=== PATIENT | female | born 1990 | race Caucasian/White ===

== ENCOUNTER 2025-02-26 01:56 | Emergency (ER) | payer BC, SELFPAY ==
--- OUTSIDE RECORDS SUMMARY | 2025-02-26 01:59 | XMS_ITS | Clinical Summary ---
Author Organization [employer] [facility] Address [address] [place] [id number] Care Team Providers Care Natural Sciences Department Chair Name Role Phone Pcp, No Primary Care Provider Unavailabl e Shruthi José Unavailable [phone] Emperatriz Garcia MD Unavailable Danita Quinones Unavailable [phone] Allergies Active Allergy Reactions Criticality Noted Date Comments Blood-Group Specific Substance Other - Describe In Comment Field 07/25/2024 Patient has anti-Jka (Arias A), anti-Fyb (Lea B), and a Nonspecific (antibodies). Blood products may be delayed. Draw patient 24 hours prior to transfusion. For [place] testing, draw one red top and two purple top tubes for all type and screen orders. Egg Derived Hives 06/04/2015 Childhood reaction in past. Can tolerate eggs but avoids them. Medications Vujtlxtd-Nm-Rio- Fe-FA tab tablet Take 1 tablet by mouth once daily. 0 03/05/20 19 Active Ferrous Sulfate 134 mg (27 mg iron) tablet Take 134 mg by mouth. 12/01/19 25 Active labetaloL 200 mg tabletIndication s: hypertension (HC) Take 2 Tablets (400 mg) by mouth every 8 hours. 180 Tablet 1 5 10:12 AM CDT 02/12/20 25 Active acetaminophen 325 mg tabletIndication s:Vaginal delivery (HC) Take 1-2 Tablets (325-650 mg) by mouth every 4 hours if needed (mild pain). Max acetaminophen dose: 4000mg in 24 hrs. 02/12/20 25 Active ibuprofen (Motrin IB) 200 mg tabletIndication s:Vaginal delivery (HC) Take 1-3 Tablets (200-600 mg) by mouth every 6 hours if needed (for uterine cramping). Take with food. 02/12/20 25 Active docusate 100 mg capsuleIndicatio ns:Vaginal delivery (HC) Take 1 Capsule (100 mg) by mouth once daily. 30 Capsule 1 5 10:12 AM CDT 02/12/20 25 Active Blood Pressure Test KitIndications:P ostpartum hypertension (HC) Regular Cuff (8.5-16.5 inches). Automatic BP monitor device for home use: patient unable to operate manual sphygmomanometer. Take and record blood pressure twice daily. 1 Each 5 10:51 AM CDT 02/12/20 25 Active NIFEdipine 30 mg extended-release tabletIndication s:Pre-eclampsia, (HC) Take 1 Tablet (30 mg) by mouth two times daily. 02/22/20 25 Active NIFEdipine 30 mg extended-release tabletIndication s: hypertension (HC) Take 2 Tablets (60 mg) by mouth once daily before a meal. 60 Tablet 1 5 10:12 AM CDT 02/13/20 25 025 Discontin ued(*IP Discontin ued) furosemide 20 mg tabletIndication s: hypertension (HC),Elevated brain natriuretic peptide (BNP) level Take 1 Tablet (20 mg) by mouth two times daily. 7 Tablet 5 10:12 AM CDT 02/12/20 25 025 Discontin ued(*IP Discontin ued) NIFEdipine 30 mg extended-release tabletIndication s: hypertension (HC) Take 1 Tablet (30 mg) by mouth once daily before a meal. 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 Collier) 09/15/2019 Pap smear for cervical cancer screening 08/06/20 24 Overview (08/06/2024): 07/2024 NIL/HPV negative. Plan: Pap/HPV due 07/2029 [facility] Supervision of high-risk Overview (01/20/2025): Erin Martinez : 1990 MPP ULTRASOUND/TESTING PATIENT MPP CONSULT ON REFERRING PROVIDER/CLINIC LOCATION/FAX #: Natural Sciences Department Chair Role and Specialty Contact Info Address Start End Comments Shruthi José PA (Physician Printing Table Hand) [facility] [address] [facility] [id number] 07/30/2024 - - Primary provider approves scheduling of recommended ultrasounds/testing: Yes Support person name: Filleter: No /ULTRASOUND TYPE: 01/27/25: f/u growth REASON FOR VISIT: What would you like to discuss or review? anti-arias a antibody, 1:2 titer [facility]:(select all that apply) testing/delivery recommendations NEXT VISIT ALERTS: Final [place] by LMP LMP Date: Patient's last menstrual period was 05/10/2024 (exact date). [place]: 02/14/25 Early US: Date: 07/23/24 GA: 11w0d [place]: 02/11/25 PrePregnancy Weight: 130 lb Height: 64.75 BMI: 22.5 PLANS & FUTURE APPOINTMENTS: ULTRASOUND/GROWTH PLAN: follow up growth at 28 and 34 weeks - Growth: Next 11/25/24 TESTING PLAN: - Testing: Through DELIVERY PLAN: - Scheduled delivery: - Preferred delivery location: PRIMARY DIAGNOSIS: 33 y.o. 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 AC 47% 07/23/24 GA: 11w0d [place]: 02/11/25 ECHO: 09/30/24 SPECIALISTS/CONSULTS: Include: Specialty MD Clinic Name Phone# [place] and ADDED TO PATIENT CARE TEAM GENETICS: Declines testing, declines L2 CARE COORDINATION: PERTINENT LABS: Blood type: O Rh Positive Antibody screen: Positive Positive anti-Arias antibodies <1:2 on 07/25/24, same on 08/28/24 Anti-Arias antibody titer: 08/28/24= 1:2, 09/25/24 = 1:2, 10/23/24 1:2 PERTINENT MEDS: PNV, prometrium PROCEDURES: PLAN OF CARE: Per SA on 11/25/24: RECOMMENDATIONS: -Return to primary OB provider for continued care. -Present findings are reassuring. -A follow up ultrasound for growth is planned in 8 weeks. -Continue monthly antibody titers as planned. 09/30/24 per [facility] RECOMMENDATIONS: -Return to primary provider for continued care. -No medication changes are indicated. -Continue with monthly antibody titers (see consult/EPIC) -The option of amniocentesis was presented. -A follow up ultrasound for growth is recommended at 28 and 34 weeks scheduled with MPP today Supervision of other normal , antepartu 07/08/2024 Overview (07/25/2024): 33 yo History of vaginal del x 5 Grand mutip Advanced maternal age : declines testing. Wants routine ultrasound History of anti-Arias antibody: will do monthly titers and then refer to mpp only if needed as has been stable in all prior other pregnancies. BMI: 21.98 18.5-24.9 recommended weight gain 25-35# Ultrasound: Scheduled 07/23/2024 COVID-19 vaccine: Declined Peds: Dr. Hallman - [facility] Partners name: Marcel OB History Para Term AB Living 7 5 5 0 1 5 SAB IAB Ectopic Multiple Live Births 1 0 0 5 # Outcome Date GA Lbr Rodrigo/2nd Weight Sex Type Anes PTL Lv 7 Current 6 Term 01/29/22 39w3d 09:03 / 00:07 3.9 kg (8 lb 9.6 oz) F VAGINAL MACI EPIDURAL MEAGAN 5 Term 03/09/20 38w2d 3.12 kg (6 lb 14.1 oz) M VAGINAL MACI NONE N MEAGAN Comments: increased antibody titer 4 Term 06/08/17 41w1d 3.7 kg (8 lb 2.5 oz) M Vag-Spont None N MEAGAN 3 Term 06/29/15 41w0d 3.48 kg (7 lb 10.8 oz) M Vag-Spont NONE, Local N MEAGAN Comments: 50 min labor with PPH (delivered in ED) Complications: Other Excessive Bleeding, Precipitous labor (< 3 hours) 2 Term 12/23/13 40w5d 3.74 kg (8 lb 4 oz) M VAGINAL MACI NONE N MEAGAN Comments: HTN in labor; oligohydramnios 40w5d week induction 1 SAB 07/2013 7w0d SPONTANEOUS Family history of breast cancer 06/19/2019 Overview (06/19/2019): Start screening mammo and breast MRI age 35; candidate for genetic testing Resolved Problems Problem Noted Date Diagnosed Date Resolved Date Jka antibody positive 09/30/20242023 Vaginal delivery 01/29/2022 09/29/2024 Supervision of other normal 06/23/2021 09/29/2024 Overview (06/23/2021): Gestational age at time of intake: 8.0 weeks Patient preferred name: [employer] Hx: Hx Anti-Arias a antibody, Hx PCOS Concerns this : OB Hx: OB History Para Term AB Living 6 4 4 0 1 4 SAB TAB Ectopic Multiple Live Births 1 0 0 0 4 # Outcome Date GA Lbr Rodrigo/2nd Weight Sex Delivery Anes PTL Lv 6 Current 5 Term 03/09/20 38w2d 3.12 kg (6 lb 14.1 oz) M VAGINAL MACI NONE N MEAGAN 4 Term 06/08/17 41w1d 3.71 kg (8 lb 3 oz) M Vag-Spont NONE N MEAGAN 3 Term 06/29/15 41w0d 3.49 kg (7 lb 11 oz) M Vag-Spont NONE N MEAGAN Comments: 50 min labor with PPH (delivered in ED) Complications: Other Excessive Bleeding, Precipitous labor (< 3 hours) 2 Term 12/23/13 40w5d 3.74 kg (8 lb 4 oz) M VAGINAL MACI NONE N MEAGAN Comments: HTN in labor; oligohydramnios 40w5d week induction 1 SAB 08/13/12 7w0d SPONTANEOUS Early GTT indicated: Denies Hx of thyroid disorder: Denies ASA indicated-High Risk for preeclampsia: No Level 2 FAS indicated (pre-preg BMI>30): No Genetic screening: Information reviewed with patient BMI:20.47 Recommended wt gain: 25 to 35 lbs Smoker: N/A HSV: Denies Ultrasound: 06/24/2021 Flu vaccine: 12/03/2019 COVID-19 vaccine: No Pertussis Vaccine: 12/29/2019 Peds: Dr. Hallman at [facility] Domestic violence screen: Denies Partners name (if applicable): Marcel Iban [facility] Consult 09/10/2019 07/30/2024 Overview (09/10/2019): [facility] CONSULTATION ON 09/15/2019 REASON FOR CONSULT: Anti-Arias antibody titer<1:1, risks/management TODAY'S APPOINTMENT: MD Consultation PRIMARY DIAGNOSIS: 29 y.o. Estimated Date of Delivery: 03/21/20 Positive anti-Arias antibodies <1:1 Anti-Arias antibodies noted in last also - 2016 Hx PPH after precipitous delivery in ED - 2014 (no mention of transfusion in notes) Hx HTN in labor - 2013 LAST GROWTH: 08/13/19 Dating 9w0d C/W LMP 06/15/19 8w3d REFERRING PHYSICIAN/PHONE/LAST UPDATE: Blanche Brown MD, [facility], Primary MD approves scheduling of recommended ultrasounds/testing: No SPECIALISTS/CONSULTS: Include: Specialty MD Clinic Name Phone# [place] and ADD TO CARE TEAM CARE COORDINATION: GENETICS: PROCEDURES: PERTINENT LABS: Labs reviewed? Yes Normal? Yes, except antibody titer O Positive, antibody Positive - anti-Arias <1:1 PERTINENT MEDS: Preferred delivery location: [facility] [place] PLAN OF CARE: Encounter for supervision of other normal , unspecified trimester 08/13/2019 024 Overview (09/05/2019): 29 y.o. H/O vag delivery X 3 Anti-arias antibody. Genetic testing: declines History PPH with second baby (after a rapid delivery in the ED) BMI:20.22 25-35# Recommended wt gain Peds: Dr Hallman at [facility] FOB: involved, Marcel OB History Para Term AB Living 5 3 3 0 1 3 SAB TAB Ectopic Multiple Live Births 1 0 0 0 3 # Outcome Date GA Lbr Rodrigo/2nd Weight Sex Delivery Anes PTL Lv 5 Current 4 Term 06/08/17 41w1d 3.71 kg (8 lb 3 oz) M Vag NONE N MEAGAN 3 Term 06/29/15 41w0d 3.49 kg (7 lb 11 oz) M Vag NONE N MEAGAN Comments: 50 min labor with PPH (delivered in ED) Complications: Other Excessive Bleeding 2 Term 12/23/13 40w5d 3.74 kg (8 lb 4 oz) M Vag NONE N MEAGAN Comments: HTN in labor; oligohydramnios 38 week induction 1 SAB 08/13/12 7w0d SPONTANEOUS Encounters Date Type Department Care Team Description 02/26/[address] [address] Patsy Granados DO 02/26/2025 Nurse Triage [facility] [address] [place] [address] Carolina Marsh NP High Blood Pressure (Post- ) 02/22/2025 Telephone [facility] [address] [place] [phone] [facility] 02/19/2025 Travel 02/18/2025 10:25 PM CDT - 02/21/2025 9:15 AM CDT Hospital Encounter [address] [address] Emperatriz Garcia MD Pre-eclampsia, (HC) (Primary Dx); Vaginal delivery (HC) Discharge Disposition: Home Self Care 02/16/2025 Travel 02/13/2025 10:00 AM CDT Office [facility] [address] [place] [address] [place] [address] Danita Quinones PA 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 (still feels uncontrolled/talk about trajectory) 02/12/2025 Travel 02/11/2025 11:59 PM CDT - 02/12/2025 2:31 AM CDT Hospital Encounter [address] [address] Yoana Bliss MD Discharge Disposition: Home Self Care 02/11/[address] [address] Patsy Granados DO Hypertension 02/11/2025 Travel 02/11/2025 Telephone [facility] [place] [address] [facility] [address] [place] [address] [facility] ([facility] CALL) 02/08/2025 10:47 AM CDT Anesthesia Event [address] [address] Brian Day MD 02/07/2025 7:21 PM CDT - 02/11/2025 1:50 PM CDT Hospital Encounter [address] [address] Emperatriz Garcia MD [employer], Kaitlynn Rose, DO Vaginal delivery (HC) (Primary Dx); AMA (advanced maternal age) multigravida 35+, third trimester (HC); Hypertension affecting in third trimester (HC); hypertension (HC); Elevated brain natriuretic peptide (BNP) level; Disorder of (HC) Discharge Disposition: Home Self Care 02/07/2025 Travel 02/05/2025 Telephone [facility] [address] [facility] [address] [place] [phone] Patsy Granados DO 02/04/2025 Telephone [facility] [address] [place] [phone] Patys Granados DO 02/03/2025 8:20 AM CDT OB Encounter [facility] [address] [place] [address] Patsy Granados DO Care (38w3d [place] 02/14/2025) 02/02/2025 Travel 01/27/2025 12:40 PM CDT - 01/27/2025 11:59 PM CDT Hospital Encounter [facility] [address] [place], [place] [phone] Danita Quinones PA Supervision of high risk in third trimester (HC) (Primary Dx); Abnormal antibody titer; AMA (advanced maternal age) multigravida 35+, second trimester (HC); High-risk in third trimester (HC) 01/26/2025 2:45 PM CDT Orders Only [facility] [address] [address] [address] Lab, [facility] 01/26/2025 8:00 AM CDT OB Encounter [facility] [address] [facility] [address] [place] [phone] Carolina Marsh NP Care (37 weeks 2 days [place] 02-14-25 ) 01/26/2025 Travel 01/22/2025 Travel 01/20/2025 8:00 AM SHIFT STACKER OB Encounter [facility] [address] [facility] [address] [place] [phone] Danita Quinones PA Care (36+3 [place] 02/14/25) 01/20/2025 Transcribe Orders [facility] [address] [facility] [address] [place] [address] Danita Quinones PA 01/20/2025 Travel 01/19/2025 3:00 PM SHIFT STACKER Office Visit [address] [place] [address] Julio C Enrique MD Consult (New patient consult, , ZIO PATCH DONE 01/13/25, DX: Palpitations, Paroxysmal SVT (supraventricular tachycardia) (HC) / Referred by Daniella Barrera//pt states she feels good. No current cardiac sx. Had some PVCs earlier. Knows they are pvcs and feels them.) 01/18/2025 Travel 01/16/2025 Telephone [facility] [address] [place] [phone] Blanche Brown MD 01/14/2025 Travel 01/12/2025 Orders Only [facility] [address] [place] [address] Ana Pace 2 scans: (2-Ord) FINAL REPORT DOS 12/22/24 01/08/2025 Telephone [facility] [address] [facility] [address] [place] [phone] Patsy Granados DO Reschedule 01/05/2025 8:00 AM SHIFT STACKER OB Encounter [facility] [address] [facility] [address] [place] [address] Carolina Marsh NP Care (34 weeks 2 days [place] 02-14-25 ) 01/05/2025 Travel 12/22/2024 10:20 AM SHIFT STACKER Office [facility] [address] [place] [address] Daniella Barrera MD Palpitations (Irregular heart beat, feels like a jolt x 2 months ) 12/22/2024 8:00 AM SHIFT STACKER OB Encounter [facility] [address] [place] [phone] Blanche Brown MD Care ([place] 02/14/25 [place] 32w2d) 12/22/2024 Orders Only [facility] [address] [place] [address] Daniella Barrera MD 1 scan: (1-Ord) 12/22/2024 12/22/2024 Travel 12/17/2024 Travel 12/08/2024 1:30 PM SHIFT STACKER OB Encounter [facility] [address] [place] [phone] Carolina Marsh NP Care (30 weeks 2 days [place] 02-14-25) 12/08/2024 Travel from Last 3 Months Immunizations Immunization Administration Dates Next Due INFLUENZA, IIV3 PF (AGE >= 6 MO) 11/07/2024 Influenza, IIV4 12/03/2019 MMR 02/09/2025() MMR, Unspecified 06/09/2017,06/30/2015 Tdap 11/26/2024,,12/29/2019,03/22/2017 ,05/28/2015,04/05/2012 Family History Medical History Relation Name Comments Good Health Brother Hyperlipidemia Brother Good Health Daughter Diabetes Father Heart Disease Father Hyperlipidemia Father Hypertension Father Cancer-breast Maternal Aunt diagnosed in her 40s Cancer-pancreatic Maternal Aunt Diabetes Maternal Aunt Good Health Maternal Aunt Stroke Maternal Grandfather Alzheimer's disease Maternal Grandmother Anxiety disorder Mother Cancer-breast Mother Cancer-breast Other maternal cousi ns Cancer-pancreatic Paternal Aunt Lymphoma Paternal Grandfather Arthritis Paternal Grandmother Heart Disease Paternal Grandmother Lymphoma Paternal Grandmother Good Health Son 1 Good Health Son 2 Good Health Son 3 Good Health Son 4 Cancer-ovarian No Family History Relation Name Status Comments Brother Alive Daughter Alive Father Alive Maternal Aunt Maternal Grandfather Maternal Grandmother Mother Other Paternal Aunt Paternal Grandfather Paternal Grandmother Son 1 Alive Son 2 Alive Son 3 Alive Son 4 Alive Social History Tobacco Use Types Packs/Day Years Used Date Smoking Tobacco: Never Passive Smoke Exposure: Never Smokeless Tobacco: Never Tobacco Cessation:Counseling Given: Not Answered Alcohol Use Standard Drinks/Week Comments Never 0 (1 standard drink = 0.6 oz pur e alcohol) PHQ-2 Answer Date Recorded PHQ-2 TOTAL SCORE 0 11/26/2024 Social Connections Answer Date Recorded Do you often feel lonely or isolated from those around you? 0 02/19/2025 Financial Resource Strain Answer Date R ecorded Difficulty of Paying Living Expenses 3 09/29/2024 Difficulty of Paying Living Expenses Not on file 09/29/2024 Food Insecurity Answer Date Recorded Do you worry your food will run out before you are able to buy more? 1 02/19/2025 Transportation Needs Answer Date Record ed Does lack of transportation keep you from medica l appointments? 1 02/19/2025 Does lack of transportation keep you from work, meetings or getting things that you need? 1 02/19/2025 Housing Stability Answer Date Recorded What is your housing situation today? 1 02/19/2025 Interpersonal Safety Answer Date Record ed Are you being hit, kicked, p ushed or yelled at (see row info)? Unable to assess, family/SO in room. 02/19/2025 Interpersonal Safety Abuse 12 - 18 Not on file 02/19/2025 Interpersonal Safety Ambulat ory Vulnerability Not on file 02/19/2025 Utilities Answer Date Recorded Do you have trouble paying f or utilities (for example, heat, electricity, water, phone)? 1 02/19/2025 Comments No Sex and Gender Information Value Date Recorded Sex Assigned at Not on file Legal Sex Female 1:03 PM SHIFT STACKER Gender Identity Not on file Sexual Orientation Not on file Obstetrics History Para Term AB IAB SAB Ectopic Multiple Livin g Live Births 7 6 6 0 1 0 1 0 0 6 6 Date Outcome GA Total Labor Labor/2nd/3rd Weight Sex Type Anes PTL Meagan A1 A5 Name Clin 3 SAB 7w0 d SPONTA NEOUS 2013 Term 40w 5d 3h 00m 3.74 kg (8 lb 4 oz) M VAGINA L MACI None N Livin g Timot hy Complications:None Delivery Location:[facility] Comments:HTN in labor; oligohydramnios 40w5d week induction 2014 Term 41w 0d 0h 23m 0h 23m 3.48 kg (7 lb 10.8 oz) M Vag-Sp ont None,L ocal N Livin g 8 9 Lucian Dubose Complications:Other Excessiv e Bleeding,Precipitous labor (< 3 hours) Delivery Location:[facility] Comments:50 min labor with PPH (delivered in ED) 2016 Term 41w 1d 0h 02m 0h 02m 3.7 kg (8 lb 2.5 oz) M Vag-Sp ont None N Livin g 8 9 Carlo Chacon ield Dalto n DO Complications:None Delivery Location:[facility] 2019 Term 38w 2d 0h 09m 3.12 kg (6 lb 14.1 oz) M VAGINA L MACI None N Livin g [address] Kisha cannon and Pe[place] es Complications:None Delivery Location:[facility] (UTD 2000 MB L&D TRIAGE) Comments:increased ant ibody titer 2021 Term 39w 3d 9h 16m 9h 03m/0h 07m/0h 06m 3.9 kg (8 lb 9.6 oz) F VAGINA L MACI Epidur al Livin g 8 9 Beatris mac, Qian yanez MD Complications:None Delivery Location:[facility] ( [email or web address] 1999 MB L&D TRIAGE) 2024 Term 39w 1d 0h 07m 0h 07m 3.51 kg (7 lb 11.8 oz) F VAGINA L MACI Epidur al Livin g 8 8 Isabel Reyes [facility] Yoana Galvez MD Complications:None Delivery Location:Hospital ( [facility] [[email or web address] 1999 MB L&D TRIAGE) Summary Episode Dates Number of Fetuses Estimated Date of Delivery 07/08/2024 - Present (02/26/2025) 1 02/14/2025 (set by Jenifer Oden, RN on 07/08/2024 based on Last Menstrual Period on 05/10/2024 (Exact Date)) Dating Summary Based On [place] Diff Last Menstrual Period on 05/10/2024 (Exact Date) 02/14/2025 Working Alternate [place] Entry 02/14/2025 Same Vitals Pregravid Weight Height TWG (As of 02/26/2025) Pregrav id BMI 59 kg (130 lb) 1.626 m (5' 4) 16.9 kg (37 lb 4.8 oz) 22.30 Date GA Fund Present FHR Mvmt BP Weight Edema Alb Glu Ket Dil/ Eff/Sta 4 20w3d Inpatient data not displayed here. See encounter summary. 5 28w3d Inpatient data not displayed here. See encounter summary. 5 37w3d Inpatient data not displayed here. See encounter summary. 5 39w1d Inpatient data not displayed here. See encounter summary. 5 39w1d Inpatient data not displayed here. See encounter summary. 5 39w1d Inpatient data not displayed here. See encounter summary. 5 39w1d Inpatient data not displayed here. See encounter summary. 5 39w1d Inpatient data not displayed here. See encounter summary. Notes Progress Notes - Hospital En counter - 02/21/2025 - GA:39w1d 02/21/2025 - 39w1d - Lucy Klein RN Problem: HEMODYNAMIC STABILITY Goal: PATIENT MAINTAINS STABLE VS WITH NO S/S VOLUME DEPLETION THROUGHOUT HOSPITALIZATION Outcome: Met Goal Goal: BLOOD PRESSURE WILL BE MAINTAINED BETWEEN DEFINED PARAMETERS THROUGHOUT HOSPITAL STAY. Outcome: Met Goal Problem: SAFETY Goal: PATIENT WILL BE KNOWLEDGEABLE REGARDING NEWLY ORDERED MEDS, INTENDED AND SIDE EFFECTS OF EACH Outcome: Met Goal Note: Vaginal Discharge Data: Vital signs stable, afebrile and assessments within normal limits. Tolerating activity and diet. Voiding without difficulty. Pain within patient determined acceptable limits. Perineum appears to be healing well. Positive attachment behaviors observed. Discharge outcomes on the care plan met. Action: Review of care plan, teaching sheet and discharge instructions done with patient. Response: Discharged at 0915 via Wheelchair 02/21/2025 - w1d - Sofía Gutierrez NP SUBJECTIVE Erin Martinez is a 34 y.o. female s/p vaginal delivery on 02/08. Initial hospitalization complicated by ppHTN and was ultimately discharge on PPD 3 taking Labetalol 400mg q8h and Nifedipine 60mg daily. Pt was seen in triage 02/11 with increase of Labetalol to 600mg q8h. Then, followed up in clinic 02/13 and Nifedipine adjusted to 60mg AM and 30mg PM. Pt ultimately presented to Triage again 02/19 with severe range BP and headache. Started on magnesium sulfate with scheduled end time 02/19 at 2350. She is feeling significantly improved this morning, headache resolved, denies any other symptoms. Blood pressures well controlled. She has no emotional concerns at this time. She is tolerating diet, ambulating without difficulty, and has no issues with urination. Her blood pressures have been well controlled. She denies [place], visual disturbances, epigastric pain, dizziness, dyspnea, or chest palpitations. OBJECTIVE BP 115/73 (Cuff Size: Adult Regular) Pulse 64 Temp 98 F (36.7 C) Resp 16 Ht 1.626 m (5' 4) Wt 64.6 kg (142 lb 8 oz) LMP 05/10/2024 (Exact Date) SpO2 97% Yes BMI 24.46 kg/m Temp (24hrs), Av.2 F (36.8 C), Min:97.9 F (36.6 C), Max:98.6 F (37 C) Patient Vitals for the past 72 hrs: Weight 02/21/25 0033 64.6 kg (142 lb 8 oz) 02/20/25 0200 65 kg (143 lb 3.2 oz) 02/19/25 0859 64.8 kg (142 lb 14.4 oz) 02/19/25 0003 66.7 kg (147 lb) Intake/Output Summary (Last 24 hours) at 02/21/2025 0752 Last data filed at 02/21/2025 0500 Gross per 24 hour Intake 2000 ml Output 400 ml Net 1600 ml Gen: alert, oriented, no apparent distress Recent Labs 02/19/25 0745 02/18/25229902/13/25 1038 BUN 13 18 16 AST 20 18 27 ALT 17 19 31 H HGB 13.9 13.1 12.5 HCT 42.0 39.4 38.3 MCV 83 84 83.4 WBC 5.1 6.0 5.7 PLT 263 262 267 Recent Labs 02/19/25 0745 02/18/25229902/13/25 1038 02/12/25 0039 WBC 5.1 6.0 5.7 6.9 HGB 13.9 13.1 12.5 11.8 L PLT 263 262 267 258 HCT 42.0 39.4 38.3 34.8 MCV 83 84 83.4 83 ASSESSMENT - pre-eclampsia with severe features - S/P vaginal delivery 02/08 PLAN: - S/p magnesium sulfate, decreased to 1g/hr 02/19am, discontinued 02/19. Continue on Labetalol 400mg q8hrs and Nifedipine 30mg XR BID. - Reviewed blood pressure parameters - Follow up in clinic for blood pressure check by end of next week - Routine postoperative cares - Encourage ambulation - Advance diet - Anticipate discharge today Time spent with patient was 30 minutes with > 50 % of time spent face to face counseling as indicated above and coordination of care. Brenda Renuka Brenda, MANAGER PLACEMENT .................... 02/21/2025 7:52 AM 02/21/2025 - 39w1d - Katelynn Vincent ra, RN Problem: HEMODYNAMIC STABILITY Goal: BLOOD PRESSURE WILL BE MAINTAINED BETWEEN DEFINED PARAMETERS THROUGHOUT HOSPITAL STAY. Note: Patients bp's were 129/78 & 115/73, no complaints of headache, blurry vision with strong hand grasp will continue with plan of cares. 02/21/2025 - 39w1d - Jenifer Kumari RN Problem: HEMODYNAMIC STABILITY Goal: BLOOD PRESSURE WILL BE MAINTAINED BETWEEN DEFINED PARAMETERS THROUGHOUT HOSPITAL STAY. Description: - Monitor vital signs per orders and acuity- Intake and output and daily weights- Note edema, location and degree of edema- Monitor lung sounds and observe for symptoms of pulmonary edema - Observe for elevated liver function labs and decreasing platelets- Observe for worsening signs of preeclampsia i.e. labs, headache, epigastric pain or visual disturbances; edema and weight gain - Administer IV and /or oral antihypertensive medications using the appropriate order set.- Administer magnesium sulfate per orders and observe for signs and symptoms of complications from magnesium use ie check hand grasps, reflexes , lung sounds, daily weight s, intake and out put Outcome: Progressing Note: Patient blood pressures have been below 140s/90s this shift, reflexes WNL, and patient denies headache or other s/sx of pre-eclampsia. Plan is to continue monitoring blood pressures overnight, and if they remain WNL patient will likely DC home tomorrow. 02/20/2025 - 39w1d - Sofía Cannon RN Problem: HEMODYNAMIC STABILITY Goal: BLOOD PRESSURE WILL BE MAINTAINED BETWEEN DEFINED PARAMETERS THROUGHOUT HOSPITAL STAY. Note: BP remains WNL this shift. 136/91 at AM assessment. Scheduled labetalol and nifedipine given at this time. Patient showered and called out to RN reporting brief episode of lightheaded/dizziness while in shower. Patient had personal BP cuff in room and self checked at this time, reported BP of 104/68. RN rechecked BP: 116/74. Educated patient on waiting to shower versus taking shower right after BP medications. Patient DTR WNL AND VSS. 1400 BP check 120/74. Patient denies headache and will let RN know if wanting any medications for this. Pumping milk and infant, ambulating independently and voiding well. Patient states her needs are met at this time and will call with any needs. 02/20/2025 - 39wSofía Machado RN Problem: SAFETY Goal: PATIENT WILL BE KNOWLEDGEABLE REGARDING NEWLY ORDERED MEDS, INTENDED AND SIDE EFFECTS OF EACH Note: Student charting has been reviewed and approved for this patient s record. Jody Cannon RN .................... 02/20/2025 12:18 PM 02/20/2025 - 39w1d Iris Esquivel PA SUBJECTIVE Erin Martinez is a 34 y.o. female s/p vaginal delivery on 02/08. Initial hospitalization complicated by ppHTN and was ultimately discharge on PPD 3 taking Labetalol 400mg q8h and Nifedipine 60mg daily. Pt was seen in triage 02/11 with increase of Labetalol to 600mg q8h. Then, followed up in clinic 02/13 and Nifedipine adjusted to 60mg AM and 30mg PM. Pt ultimately presented to Triage again 02/19 with severe range BP and headache. Started on magnesium sulfate with scheduled end time 02/19 at 2350. The patient is Breast feeding baby. She is feeling significantly improved this morning, headache resolved, denies any other symptoms. Blood pressures well controlled. She has no emotional concerns at this time. She is tolerating diet, ambulating without difficulty, and has no issues with urination. OBJECTIVE BP 116/67 Pulse 70 Temp 97.8 F (36.6 C) Resp 16 Ht 1.626 m (5' 4) Wt 65 kg (143 lb 3.2 oz) LMP 05/10/2024 (Exact Date) SpO2 96% Yes BMI 24.58 kg/m Temp (24hrs), Av.8 F (36.6 C), Min:97.7 F (36.5 C), Max:97.8 F (36.6 C) Patient Vitals for the past 72 hrs: Weight 02/20/25 0200 65 kg (143 lb 3.2 oz) 02/19/25 0859 64.8 kg (142 lb 14.4 oz) 02/19/25 0003 66.7 kg (147 lb) Intake/Output Summary (Last 24 hours) at 02/20/2025 0847 Last data filed at 02/20/2025 0700 Gross per 24 hour Intake 1695 ml Output 3300 ml Net -1605 ml Gen: alert, oriented, no apparent distress, sitting up in bed pumping Recent Labs 02/19/25 0745 02/18/25 2300 02/13/25 1038 BUN 13 18 16 AST 20 18 27 ALT 17 19 31 H HGB 13.9 13.1 12.5 HCT 42.0 39.4 38.3 MCV 83 84 83.4 WBC 5.1 6.0 5.7 PLT 263 262 267 Recent Labs 02/19/25 0745 02/18/25 2300 02/13/25 1038 02/12/25 0039 WBC 5.1 6.0 5.7 6.9 HGB 13.9 13.1 12.5 11.8 L PLT 263 262 267 258 HCT 42.0 39.4 38.3 34.8 MCV 83 84 83.4 83 ASSESSMENT - pre-eclampsia with severe features - S/P vaginal delivery 02/08 PLAN: - S/p magnesium sulfate, decreased to 1g/hr 04am, discontinued 02/19. Continue on Labetalol 400mg q8hrs and Nifedipine 30mg XR BID. - Routine cares - Encourage ambulation - Regular diet - Anticipate discharge tomorrow pending blood pressure control. Time spent with patient of which >50% of time was spent counseling or coordinating care: 15 minutes DONNIE Velasco .................... 02/20/2025 8:47 AM 02/20/2025 - 39w1d - Nalini Dang RN Problem: HEMODYNAMIC STABILITY Goal: BLOOD PRESSURE WILL BE MAINTAINED BETWEEN DEFINED PARAMETERS THROUGHOUT HOSPITAL STAY. Outcome: Progressing VSS, BPs on this shift: 119/75 and 116/67. Patient continues to have a mild headache 2/10 and some relief with scheduled pain medications. PIV taken out due to pain on upper part of arm. Pain resolved. Mag completed at 2359. Patient denies blurred vision, epigastric pain, nausea and vomiting. 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 Patient will call with concerns. 02/20/2025 - 39w1d - Patricia Cotton RN Problem: HEMODYNAMIC STABILITY Goal: BLOOD PRESSURE WILL BE MAINTAINED BETWEEN DEFINED PARAMETERS THROUGHOUT HOSPITAL STAY. Description: - Monitor vital signs per orders and acuity- Intake and output and daily weights- Note edema, location and degree of edema- Monitor lung sounds and observe for symptoms of pulmonary edema - Observe for elevated liver function labs and decreasing platelets- Observe for worsening signs of preeclampsia i.e. labs, headache, epigastric pain or visual disturbances; edema and weight gain - Administer IV and /or oral antihypertensive medications using the appropriate order set.- Administer magnesium sulfate per orders and observe for signs and symptoms of complications from magnesium use ie check hand grasps, reflexes , lung sounds, daily weight s, intake and out put Note: Care Plan Progress Note Data: Pt continues on magnesium sulfate per orders, vital signs have been stable and BP within normal limits. Pt denies any visual changes, epigastric pain or RUQ pain. Pt continues to have an ongoing headache on and off throughout the day. Action: Pt medicated with ibuprofen and Tylenol as needed. Will reassess pain/comfort and offer alternate intervention as appropriate. Continue to observe for signs and symptoms of complications from magnesium. 02/19/2025 - 39femi - Sofía Cannon RN Student charting has been reviewed and approved for this patient s record. Jody Cannon RN .................... 02/19/2025 11:28 AM 02/19/2025 - 39femi - Sofía Cannon RN Problem: HEMODYNAMIC STABILITY Goal: BLOOD PRESSURE WILL BE MAINTAINED BETWEEN DEFINED PARAMETERS THROUGHOUT HOSPITAL STAY. Note: Provider Notification Note DATA Reason for Notification: Patient magnesium level resulted at 5.5. BP this AM 111/66. Clarification of orders for Magnesium infusion and scheduled BP meds. ACTION Provider Notified: DONNIE Valentino at 0900 via Face to face RESPONSE Will hold BP medications labetalol and nifedipine for now, recheck BP with ordered rechecks. VORB to restart magnesium at 1g/hr. Will continue until 24 hours after loading dose. Pt aware to report any changes to PP RN. DONNIE updated orders with end time for magnesium and adjusted dosage. 1322: DONNIE Hawkins called for BP 130/82. Ordered to give previously held AM dose of 30mg nifedipine now. Plan to recheck BP in 2 hours (1530) and reassess from there. Per DONNIE - if still above 110/60 - give scheduled 1600 dose of labetalol at this time. also received VORB for standard BP med parameters for holding (BP equal to or less than 110/60). Nursing communication order placed. 02/19/2025 - 39w1d - Shruthi Hill PA SUBJECTIVE Erin Martinez is a 34 y.o. female s/p vaginal delivery on 02/08. Initial hospitalization complicated by ppHTN and was ultimately discharge on PPD 3 taking Labetalol 400mg q8h and Nifedipine 60mg daily. Pt was seen in triage 02/11 with increase of Labetalol to 600mg q8h. Then, followed up in clinic 02/13 and Nifedipine adjusted to 60mg AM and 30mg PM. Pt ultimately presented to Triage again 02/19 with severe range BP and headache. Started on magnesium sulfate with scheduled end time 02/19 at 2350. The patient is Breast feeding baby. Her blood pressures have been within normal limits on magnesium, meeting hold parameters for Labetalol and Nifedipine this AM. Denies JOHNSTON, visual disturbances, epigastric pain, dizziness, dyspnea, chest pain or palpitations. PCR 0.1, liver enzymes nl, Cr nl, hgb/plt nl. Other vitals have remained WNL. Doing well today. No new complaints. Pain is well controlled with current medications. She has no emotional concerns at this time. She denies any nausea, and emesis. She is tolerating diet, ambulating without difficulty, and has no issues with urination. Amount of lochia is appropriate. OBJECTIVE BP 111/66 (Cuff Size: Adult Regular) Pulse 75 Temp 97.7 F (36.5 C) Resp 16 Ht 1.626 m (5' 4) Wt 64.8 kg (142 lb 14.4 oz) LMP 05/10/2024 (Exact Date) SpO2 98% Yes BMI 24.53 kg/m Temp (24hrs), Av.7 F (36.5 C), Min:97.5 F (36.4 C), Max:98 F (36.7 C) Patient Vitals for the past 72 hrs: Weight 02/19/25 0859 64.8 kg (142 lb 14.4 oz) 02/19/25 0003 66.7 kg (147 lb) Intake/Output Summary (Last 24 hours) at 02/19/2025 0985 Last data filed at 02/19/2025 0848 Gross per 24 hour Intake 1000 ml Output 2000 ml Net -1000 ml Gen: alert, oriented, no apparent distress Extremities: no lower extremity edema, no unilateral swelling or erythema ASSESSMENT - pre-eclampsia with severe features - S/P vaginal delivery 02/08 - Normal course PLAN: - On magnesium, 4g load >2g/hr. Was paused this AM due to pt feeling lightheaded/drunk and mag level checked, 5.5. Symptoms resolved and resumed at 1g/hr and tolerating well. - Continue Nifedipine 30mg BID and Labetalol 400mg q8h. Would wean off Labetalol first. - Routine cares - Encourage ambulation - Advance diet - Discharge likely Sunday pending BP control DONNIE Barber .................... 02/19/2025 9:37 AM 02/19/2025 - 39w1d - Paola Franks RN DISPOSITION: Orders received from Dr. Lyle to admit patient for blood pressure management. Will start pts Magnesium infusion and transfer after 1 hour if she remains stable. Magnesium load initiated at 2352. Bedside report given to JOSH Alvarado at 0100. Patient transferred to room 2324 via wheelchair. Magnesium currently infusing at 2g/hr per MAR, pt continues to report a 5/10 headache but declines medications at this time. Care relinquished. Susan Franks RN .................... 02/19/2025 1:06 AM 02/19/2025 - 39w1d - Paola Franks RN D: At 2227 patient presents ambulatory from home to [facility] for evaluation of headache and elevated blood pressures at home (165/101, 161/103). Accompanied by and . Patient reports Headache with onset this AM. Rates pain 5/10 after taking 650mg of tylenol at 2000. Patient denies visual changes, epigastric pain, and unusual edema. Patient is a and delivered vaginally on 02/08. Patient's OB/PMH significant for the following: She is currently taking 400mg of Labetolol Q8H at home and recently decreased her XR Nifedipine from 60mg to 30mg due to BP's in the 110's systolic and feeling lightheaded. A: Vital signs BP (!) 174/98 (Cuff Size: Adult Regular Long) Pulse 62 Temp 98 F (36.7 C) Resp 16 LMP 05/10/2024 (Exact Date) SpO2 95% . R: Dr. Lyle phoned at 2245 and notified of above data, nursing assessment and FHR tracing. Orders received. Plan of Care discussed with patient, patient verbalizes understanding and agreement. LABS COLLECTED: PCR, CBC & CMP, sent to lab. INTERVENTIONS: IV and Medications Progress Notes - Hospital En counter - 02/12/2025 - GA:39w1d 02/12/2025 - 39w1d - Raul Lloyd RN 0115- Report taken from Prisca Ribera RN. Safety checks completed. 224- Called Dr. Granados to notify her about lab results. New orders received to discharge to home and increased labetolol to 600mg TID with follow up on Sunday, if possible. 229- Discharge DISPOSITION: Orders received from Dr. Granados to discharge patient to home. AVS and instructions of when to return to hospital reviewed with patient. Patient verbalizes understanding and is in agreement with plan of care. Next patient appointment with OB Provider is scheduled on 02/[address] Granados would like pt to try to be seen on Sunday if possible. Pt also instructed to take Labetolol 600mg TID and she verbalized understanding. At 0230 patient discharged ambulatory, undelivered. Raul Lloyd RN .................... 02/12/2025 7:19 AM 02/12/2025 - 39w1d - Prisca De La Cruz RN 0115: Report given to Raul MORENO. Care relinquished. Prisca De La Cruz RN .................... 02/12/2025 1:18 AM 02/12/2025 - 39w1d - Prisca De La Cruz RN D: At 2359 patient presents ambulatory from home to [facility] for evaluation of elevated BP at home. Accompanied by partner and child. Patient reports checking BP prior to 2200 scheduled labetalol 400 mg dose and BP's were 142/87 and 144/96. Pt called insurance verification clerk and was instructed to increase labetalol to 600 mg. Pt took it at 2200. Next BP 163/98. Pt reports feeling generally well. Rates pain 0/10. Patient denies headache, visual changes, epigastric pain, and unusual edema. Patient is a at 39w1d gestation. Patient's OB/PMH significant for the following: A: Vital signs BP 134/86 Pulse 74 Temp 98.2 F (36.8 C) Resp 16 Wt 68.1 kg (150 lb 1.6 oz) LMP 05/10/2024 (Exact Date) SpO2 98% Yes BMI 25.17 kg/m . R: 0023: Dr. Granados called and informed of pt's arrival for BP check, increased dose of home medication labetalol at 2200 was 600 mg, and verbal order to repeat labs, CBC, CMP, and Pro-BNP. No Urine PCR at this time. LABS COLLECTED: all collected, sent to lab. INTERVENTIONS: serial BP's Prisca De La Cruz RN .................... 02/12/2025 1:16 AM Progress Notes - Hospital En counter - 02/11/2025 - GA:39w1d 02/11/2025 - 39wjameel - Екатерина Ovalle RN Problem: DISCHARGE PLANNING Goal: PATIENT MEETS CLINICAL DISCHARGE CRITERIA / CHRONIC CONDITIONS AT BASELINE PRIOR TO DISCHARGE Note: Vaginal Discharge Data: Assessments within normal limits. Tolerating activity and diet. Voiding without difficulty. Pain within patient determined acceptable limits. Perineum appears to be healing well. Positive attachment behaviors observed. Discharge outcomes on the care plan met. Action: Review of care plan, teaching sheet and discharge instructions done with patient. Response: Discharged at 1345 via Wheelchair accompanied by RN and nursing staffing coordinator. 02/11/2025 - 39w1d - Екатерина Ovalle RN Problem: HEMODYNAMIC STABILITY Goal: BLOOD PRESSURE WILL BE MAINTAINED BETWEEN DEFINED PARAMETERS THROUGHOUT HOSPITAL STAY. 02/11/2025 1243 by Екатерина Mitchell RN Note: BP's 144/91 recheck 135/89; denies s/sx of preE. DONNIE Rodriguez informed ; may dc home . 02/11/2025 - 39w1d Iris Esquivel PA SUBJECTIVE Erin Martinez is doing well today. Pain is well controlled with current medications. She has no emotional concerns at this time. She denies any nausea, and emesis. She is tolerating diet, ambulating without difficulty, and has no issues with urination. Amount of lochia is appropriate. The patient is Breast feeding baby. Blood pressures improved, did have a few readings of 140's/80's when her morning medications were due, repeat blood pressure 128/82. She has a slight headache 2/10 in severity but denies visual disturbances, epigastric pain, dizziness, dyspnea, chest pain or palpitations. OBJECTIVE BP 128/82 (Cuff Size: Adult Regular Long) Pulse 78 Temp 97.7 F (36.5 C) Resp 16 Ht 1.645 m (5' 4.75) Wt 67.9 kg (149 lb 11.2 oz) LMP 05/10/2024 (Exact Date) SpO2 98% Yes BMI 25.10 kg/m Temp (24hrs), Av.7 F (36.5 C), Min:97.7 F (36.5 C), Max:97.7 F (36.5 C) Patient Vitals for the past 72 hrs: Weight 02/11/25 0244 67.9 kg (149 lb 11.2 oz) 02/10/25 0501 70.9 kg (156 lb 3.2 oz) Intake/Output Summary (Last 24 hours) at 02/11/2025 0929 Last data filed at 02/11/2025 0801 Gross per 24 hour Intake -- Output 4150 ml Net -4150 ml Gen: alert, oriented, no apparent distress, sitting up in bed ASSESSMENT - PPD #3 vaginal delivery, QBL: 50 - HTN - Anti-Arias antibodies - Normal course PLAN: - Continue on Labetalol 400mg q8hrs and Nifedipine 60mg XR QD. Patient is ~6 pounds down today, continue on Lasix 20mg PO BID for an additional 4 days. Blood pressure cuff provided, patient will check blood pressure 3-4 times daily. Reviewed blood pressure parameters to call for. Patient was referred to [facility] for blood pressure check in 1-3 days of discharge. Follow up in clinic as scheduled on 02/16 for blood pressure check. - Routine cares - Return to clinic in 6 weeks for visit, contraception to be addressed at visit - Reviewed reasons to call or return, including bleeding, fever, pain, or other concerns. - Discharge to home today DONNIE Velasco .................... 02/11/2025 9:29 AM ADDENDUM: Blood pressures upon discharge were 144/91 and 135/89, continue with discharge as planned. If sustaining BP in the 140's/90's, plan will be to increase Labetalol to 600mg q8hrs as previously reviewed with the patient. DONNIE Velasco .................... 02/11/2025 12:43 PM 02/11/2025 - 39w1d - Екатерина Ovalle RN Problem: HEMODYNAMIC STABILITY Goal: BLOOD PRESSURE WILL BE MAINTAINED BETWEEN DEFINED PARAMETERS THROUGHOUT HOSPITAL STAY. Note: BP 128/82 on nifedipine XL 60mg and labetalol 400mg q 8hrs. Mild JOHNSTON from Nifedipine or inadequate rest/sleep ?, denies vision changes, ruq pain, chest pain and sob. Diuresing from lasix. Medicated with ibuprofen; declined ice pack. Continue to monitor. 02/11/2025 - 39femi - Eun Griffin RN Problem: NEUROLOGIC STABILITY Goal: PATIENT MAINTAINS BASELINE NEURO STATUS AND SEIZURE FREE THROUGHOUT HOSPITALIZATION Outcome: Progressing Note: Provider Notification Note DATA Reason for Notification: 2336. Jevon Martinez. FYI: Pt continues to have JOHNSTON- not resolved with meds, pt not wanting to take pain meds for JOHNSTON anymore. Brisk patellar reflexes. Last BP 142/85. Down 6.5 lb. ACTION Provider Notified: Dariela at 0313 via Phone call RESPONSE Continue to monitor. Eun Griffin RN .................... 02/11/2025 3:19 AM 02/11/2025 - 39wjameel - Rony Valladares RN Problem: HEMODYNAMIC STABILITY Goal: BLOOD PRESSURE WILL BE MAINTAINED BETWEEN DEFINED PARAMETERS THROUGHOUT HOSPITAL STAY. Description: - Monitor vital signs per orders and acuity- Intake and output and daily weights- Note edema, location and degree of edema- Monitor lung sounds and observe for symptoms of pulmonary edema - Observe for elevated liver function labs and decreasing platelets- Observe for worsening signs of preeclampsia i.e. labs, headache, epigastric pain or visual disturbances; edema and weight gain - Administer IV and /or oral antihypertensive medications using the appropriate order set.- Administer magnesium sulfate per orders and observe for signs and symptoms of complications from magnesium use ie check hand grasps, reflexes , lung sounds, daily weight s, intake and out put Note: Care Plan Progress Note Data: Pt's blood pressure this evening was 135/88. Pt received 400 mg labetalol at 2230. Action: Pt denies Pre E sx except for headache which has decreased after pain meds. Response: Pt has reasonable questions about blood pressures and her meds as this is all new to her with this . Pt understands current medicine regime. 02/10/2025 - 39w1d Suzanne Gamino L [facility] - Integrative Medicine Acupuncture Consult Note Please refer [facility] T [facility] Doc Flowsheet for detailed data on the interventions performed during this session. Received referral from physician to see patient for consult. Integrative Health practitioner met with patient to introduce services and assess needs. per note: Erin Martinez is doing okay today. Tearful on exam with having to stay for blood pressures. She denies JOHNSTON, visual disturbances, epigastric pain, dizziness, dyspnea, chest pain or palpitations. Assessment: Patient Erin Martinez seen today for an Acupuncture and Integrative Medicine consultation. Erin was resting in bed with her baby and eating when I arrived. We discussed acupuncture and integration and the benefits of supporting blood pressure and recovery. Erin was interested but wanted to eat first and was scheduled to receive her blood pressure meds shortly. We made a plan to come back to treat her at 3:00pm. I received a call from Erin's nurse at 2:50 stating that she preferred to sleep and would like me to come back tomorrow. Chief complaint: blood pressure control, fatigue, emotional disturbance. Other incidental findings: Erin reported that she was feeling fine but that she was struggling emotionally with the blood pressure diagnosis and having to stay another night. 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 Plan for follow up tomrrow and as staffing, patient and providers' schedules allow. Thank you for including Integrative Health in the care of this patient. Ean Shoemaker .................... 02/10/2025 3:00 PM 02/10/2025 - 39wjameel - Екатерина Ovalle RN Problem: HEMODYNAMIC STABILITY Goal: BLOOD PRESSURE WILL BE MAINTAINED BETWEEN DEFINED PARAMETERS THROUGHOUT HOSPITAL STAY. Note: 0830 DONNIE Rodriguez informed of severe range pressures; see flowsheets. Pt is asymptomatic; denies JOHNSTON,vision changes, ruq pain, chest pain and sob. She is tearful and frustrated her BP keeps going up. Also,exhausted from not having sleep last night . Pt told me her kids are coming at 1100 since she is not going home today. I offered to bring baby in the Nursery so she can rest/sleep. May give donor milk x1 if needed. BP's improved post nifedipine IR and nifedipine XL; pt remains asymptomatic. Labs resulted and unremarkable except pro BNP 294. DONNIE Rodriguez informed; will order lasix. 02/10/2025 - 39Iris Horton PA SUBJECTIVE Erin Martinez is doing okay today. Tearful on exam with having to stay for blood pressures. She denies JOHNSTON, visual disturbances, epigastric pain, dizziness, dyspnea, chest pain or palpitations. Pain is well controlled with current medications. She has no emotional concerns at this time. She denies any nausea and emesis. She is tolerating diet, ambulating without difficulty, and has no issues with urination. Amount of lochia is appropriate. The patient is Breast feeding baby. OBJECTIVE BP (!) 162/91 (Cuff Size: Adult Regular Long) Pulse 65 Temp 97.9 F (36.6 C) Resp 16 Ht 1.645 m (5' 4.75) Wt 70.9 kg (156 lb 3.2 oz) LMP 05/10/2024 (Exact Date) SpO2 96% Yes BMI 26.19 kg/m Temp (24hrs), Av.8 F (36.6 C), Min:97.6 F (36.4 C), Max:97.9 F (36.6 C) Patient Vitals for the past 72 hrs: Weight 02/10/25 0501 70.9 kg (156 lb 3.2 oz) 02/07/25 2040 75.9 kg (167 lb 4.8 oz) Gen: alert, oriented, no apparent distress, lying in bed ASSESSMENT - PPD #2 vaginal delivery, QBL: 50 - HTN - Anti-Arias antibodies - Normal course PLAN: - Continue on Labetalol 400mg q8hrs, start Nifedipine 30mg XR QD. - Routine cares - Encourage ambulation - Advance diet - Plan to discharge tomorrow pending blood pressure control DONNIE Velasco .................... 02/10/2025 8:44 AM ADDENDUM: Repeat blood pressure 160/92 when Nifedipine was given. Patient was unable to sleep last night, is going to nursery, plan to recheck BP at 1100 when she wakes up. She remains asymptomatic. DONNIE Velasco .................... 02/10/2025 9:12 AM ADDENDUM: Repeat blood pressure 163/86. Discussed with nursing staff, plan will be to give Nifedipine PO IR 10mg as well as an additional dose of Nifedipine 30mg XR, increasing total daily dose to 60mg XR QD, continue to monitor blood pressures closely. Will order repeat HELLP labs and BNP at this time. DONNIE Velasco .................... 02/10/2025 11:16 AM ADDENDUM: Blood pressures improved, now in the 120's/80's. BNP 294. Reviewed risks and benefits of Lasix and patient was agreeable, plan Lasix 40mg PO X1 dose today, then Lasix 20mg BID X4 additional days starting tomorrow. DONNIE Velasco .................... 02/10/2025 1:36 PM 02/10/2025 - 39w1d - Maria A Flowers RN Problem: HEMODYNAMIC STABILITY Goal: BLOOD PRESSURE WILL BE MAINTAINED BETWEEN DEFINED PARAMETERS THROUGHOUT HOSPITAL STAY. Outcome: Progressing Provider Notification Note DATA Reason for Notification: Pressures continue in the 140s ACTION Provider Notified: Dr. Lan at 0015 via Text/Page RESPONSE Labetalol increased to 400mg from 300mg. First dose given @ 0557 Pressures of 145/71, 142/86, 139/65 overnight. Denies s/s pre e, no edema. Weight down 11lbs. 02/09/2025 - 39w1d - Esteban torres, DONNIE Salazar SUBJECTIVE Erin Martinez is a 34 y.o. female with a history of PCOS, cold sores s/p vaginal delivery on 02/08. EBL 50. Introitus abrasions laceration, no repair required. The patient is Breast feeding baby. Her blood pressures have been 130-140s on Labetalol 200mg q8h. Denies JOHNSTON, visual disturbances, epigastric pain, dizziness, dyspnea, chest pain or palpitations. Labs with PCR 0.1. Other vitals have remained WNL. Doing well today. No new complaints. Pain is well controlled with current medications. She has no emotional concerns at this time. She denies any nausea, and emesis. She is tolerating diet, ambulating without difficulty, and has no issues with urination. Amount of lochia is appropriate. OBJECTIVE BP 139/79 (Cuff Size: Adult Regular) Pulse 65 Temp 98.1 F (36.7 C) Resp 16 Ht 1.645 m (5' 4.75) Wt 75.9 kg (167 lb 4.8 oz) LMP 05/10/2024 (Exact Date) SpO2 96% Yes BMI 28.06 kg/m Temp (24hrs), Av.2 F (36.8 C), Min:97.8 F (36.6 C), Max:98.7 F (37.1 C) Patient Vitals for the past 72 hrs: Weight 02/07/25 2040 75.9 kg (167 lb 4.8 oz) Intake/Output Summary (Last 24 hours) at 02/09/2025 0919 Last data filed at 02/09/2025 0756 Gross per 24 hour Intake 887.33 ml Output 3450 ml Net -2562.67 ml Gen: alert, oriented, no apparent distress ASSESSMENT - PPD#1 , vaginal delivery - ppHTN - Normal course PLAN: - Increase Labetalol to 300mg q8h - Routine cares - Encourage ambulation - Advance diet - Plan to discharge tomorrow pending BP control DONNIE Barber .................... 02/09/2025 9:19 AM 02/09/2025 - 39w1d - Екатерина Ovalle RN Problem: HEMODYNAMIC STABILITY Goal: BLOOD PRESSURE WILL BE MAINTAINED BETWEEN DEFINED PARAMETERS THROUGHOUT HOSPITAL STAY. Note: Feels well. BP 139/79 on labetalol 200mg; denies JOHNSTON, vision changes, ruq pain, chest pain and sob. Pain controlled with current medications, voiding well. 02/09/2025 - 39w1d - Maria A Flowers RN Problem: HEMODYNAMIC STABILITY Goal: PATIENT MAINTAINS STABLE VS WITH NO S/S VOLUME DEPLETION THROUGHOUT HOSPITALIZATION Outcome: Progressing Pressures of 142/68 and 134/80 overnight. Reports some pain in lower back located at epidural site. Taking scheduled pain medications. Ice and hot pack offered. independently. Independent with all cares. 02/08/2025 - 39w1d - Charisse Nevarez RN Problem: SAFETY Goal: PATIENT/FAMILY UNDERSTANDS LABOR/DELIVERY PROCESS AND CARES INVOLVED. Note: Nursing Transfer Out Note Data: Erin Martinez transferred to room 2336 via wheelchair at 1630 accompanied by Registered Nurse. Reason for transfer cares. Equipment used for transport: None. Action: Report given to Manda at 1630. Special considerations reported: Not applicable. Patient sent with belongings at the time of transfer. Response: Patient tolerated transfer. 02/08/2025 - 39w1d - Sofía Odonnell RN Problem: SAFETY Goal: MOTHER AND INFANT PHYSICAL SAFETY NEEDS WILL BE MET THROUGHOUT HOSPITALIZATION Outcome: Progressing Data: Patient transferred from LDU via wheelchair to room 2336 at 1630. Report received from Caryl Giles RN LDU Action: Patient oriented to room and amenities that are available for patient and family. Discussed plan of care and length of stay. Safety checks completed, including IV rate verification. Safety initiatives discussed. Patient and family instructed on importance of hand hygiene. Pain control options discussed and learning materials given to patient. Discussed Purposeful Rounding and bedside shift report. Patient's call light within reach. Response: Patient understands what their stay on will be like. 02/08/2025 - 39w1d - Eliane Bliss MD [facility] PROGRESS NOTE Erin is comfortable with her epidural. Cervix: 5/80-2; AROM with small amount of clear fluid. FHT Cat 1. Continue to monitor. Yoana Bliss MD .................... 02/08/2025 12:00 PM 02/08/2025 - 39w1d - Eliane Bliss MD [facility] PROGRESS NOTE Assuming care for Erin Martinez. She is a Erin Martinez at 39w1d who was admitted yesterday for induction of labor in the setting of history of precipitous delivery. also notable for advanced maternal age as well as anti-arias antibodies. She received oral Cytotec overnight and IV Pitocin was started but not until this morning due to unit activity. She plans an epidural for pain control during her labor and would prefer this be placed prior to AROM. Currently walking the unit. History of 5 previous vaginal deliveries and hemorrhage. Most recent growth US noted baby at 3509 grams (80%ile) on 01/27/25. Last baby was 3900 grams. Plan for hemorrhage prevention: 2 IVs, TXA, cytotec, possible methergine. FHT baseline 150, mod jan, + accels, no decelerations. Contractions not tracing well at this time. Yoana Bliss MD .................... 02/08/2025 9:27 AM 02/08/2025 - 39w1d - Charisse Nevarez RN Problem: PROGRESSION OF LABOR Goal: PATIENT DEMONSTRATES NORMAL PROGRESSION THROUGHOUT LABOR AND WITHOUT COMPLICATIONS Note: 714- report received from Lizzie Olivera RN. Cares assumed 1030- Patient requesting epidural. IV fluid bolus started 1055- Dr. Day at bedside for epidural placement at 1055. Patient consented for procedure by MD. Positioned upright for placement. Test dose per . VS per protocol, see doc flow sheet This designer/writer remains at bedside with pt per protocol. Repositioned R lateral at 1105. See JAN. 1200- Dr. Bliss at bedside. AROM by MD for scant amount of clear fluid 1345- designer/writer went into room d/t decelerations. IV fluids started, patient repositioned and SVE done with patient consent. 10cm. Dr. Bliss called and is heading to bedside. 1408-Female infant delivered vaginally at 1408. Delated cord clamping for 120 seconds. QBL 50ml. IV pitocin started after delivery and rectal cytotec given 1545- Patient still having elevated bps. Dr. Bliss notified. ordered labetalol 200mg TID 02/08/2025 - 39w1d - Lizzie Crum RN Problem: PROGRESSION OF LABOR Goal: PATIENT DEMONSTRATES NORMAL PROGRESSION THROUGHOUT LABOR AND WITHOUT COMPLICATIONS Note: 2204- Dr. Grove bedside to meet patient, discuss plan of care for the night. First dose of oral cytotec has been given, see MAR. At 2210 deceleration audible. IV bolus started, positioned changed. Per MD plan to hold remaining cytotec doses. MD will come perform SVE at 0115 to determine if Oxytocin is appropriate. 0130- RN updated Dr. Grove. Patient resting, unaware of contractions. MD is unable to come bedside for SVE at this time. She will come bedside when available. 0230- MD communicated with RN. OK for RN to perform SVE. If gil score is adequate, orders received to start Oxytocin. 0240- SVE 350/-2/soft/mid. Due to unit need, unable to start oxytocin at this. Dr. Grove updated. Lizzie Christina RN .................... 02/08/2025 6:43 AM 02/08/2025 - 39wjameel - Lizzie Crum RN Problem: SAFETY Goal: INFANT/MOTHER SAFETY IS MAINTAINED DURING LABOR AND DELIVERY PERIOD 02/07/20252238 by Lizzie Christina RN Note: Patient identified as elevated risk for post hemorrhage due to induction, history of previous section, and having 5 prior vaginal deliveries. Risk factors discussed with Dr. Grove. Plan T&S, TXA prior to delivery, cytotec as second agent after delivery. Lizzie Christina RN .................... 02/07/2025 10:41 PM 02/08/2025 - 39Lizzie Colón RN Problem: SAFETY Goal: INFANT/MOTHER SAFETY IS MAINTAINED DURING LABOR AND DELIVERY PERIOD Note: Admission Note Data: Erin Martinez admitted to station/unit Mother Baby room 2037 from home via ambulatory. Family aware of admission: Yes. Family members aware/notified of admission: spouse Action: Placed on: EFM, TOCO . records reviewed. SVE 12/18/-/post Notified: Dr. Grove of patient's arrival, IOL indication, elevated blood pressures on admission. Patient/family oriented to room and unit. Clinical progression initiated. Response: Patient tolerated transfer. and Patient is stable. Plan for oral cytotec for cervical ripening. Lizzie Christina RN .................... 02/07/2025 10:37 PM 02/08/2025 - 39w1d - Lizzie Crum RN POSITION EVALUATION USING ULTRASOUND PROCEDURE NOTE Patient: Erin Martinez : 1990 Admitting Physician: Emperatriz Garcia MD Reason for test: positioning Date of test: 02/07/2025 39w0d Position: vertex Cardiac Activity: Yes Comments: NA Reported to: Dr. Chandan Christina RN .................... 02/07/2025 8:21 PM Progress Notes - OB Encounte r - 02/03/2025 - GA:38w3d 02/03/2025 - 38w3d - Patsy Payan DO Erin Martinez with IUP at 38w3d presents for routine care. Would like to discuss IOL at 39 weeks. She reports good movement, denies contractions, leakage of fluid, vaginal bleeding. 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 Will call pt with IOL date and time. Patsy Granados DO 02/03/2025 8:58 AM Progress Notes - OB Encounte r - 01/26/2025 - GA:37w2d 01/26/2025 - 37w2d - Ori Marsh NP Routine OB S. Erin Martinez is a 34 y.o. at 37w2d presents for routine OB visit. Experiencing rare mild inez elizondo. Reports active movement. Denies contractions, cramping, bleeding or leaking fluid. May consider IOL later, no decision made today. Monitoring antibody titer monthly. Scheduled for labs later today. O. PHYSICAL EXAM: BP 112/60 (Cuff Site: Right Arm, Position: Sitting, Cuff Size: Adult Regular) Pulse 72 Wt 75.8 kg (167 lb) LMP 05/10/2024 (Exact Date) BMI 27.79 kg/m General Appearance: Alert, appropriate appearance for age. No acute distress movement: active baby Cervical exam: not indicated FH: 38 cm FHT by doppler: 134-146 A/P: GBS was negative on 01/20/2025 Hemoglobin and antibody titer - will do labs later today Growth scan scheduled tomorrow Discuss more about IOL at 39 week on next visit Third trimester bleeding precautions and preE discussed Encouraged daily kick counts Signs of labor reviewed Return to clinic in 1 week for AYLA visit Carolina Marsh NP .................... 01/26/2025 8:29 AM Progress Notes - OB Encounte r - 01/20/2025 - GA:36w3d 01/20/2025 - 36w3d - Danita Quinones PA Routine OB Visit S: Erin Martinez is doing well today. No complaints. No vaginal bleeding, loss of fluid, cramping/contractions. Daily activity: present. Had f/u cardiology visit yesterday for holter monitor review (note not completed yet). She reports there was a short run of SVT but burden so low that supply controller did not recommend any treatment or medication. Mostly PVCs. Plan would be to follow up if sx worsen. He did not have any concern w her delivering vaginally and does not recommend telemetry. Pt feels well today and denies any cardiac sx currently. O: BP 110/68 (Cuff Site: Right Arm, Position: Sitting, Cuff Size: Adult Regular) Pulse 80 Wt 75.3 kg (166 lb) LMP 05/10/2024 (Exact Date) BMI 27.62 kg/m Gen: Well appearing in NAD A/P: 34 y.o. at 36w3d GA here for routine visit. issues: grand multip, anti-Arias ab +, AMA, recent palpitations s/p cardiology workup, hx of HTN in lab w first baby, hx of precipitous delivery and PPH. GBS collected Ab titer ordered as well as Hgb, no lab draw in [place] today, will make lab appt [facility] had recommended a f/u growth scan 8 weeks after her prior US on 11/25 (she does not have this scheduled yet) - will call to make appt. Reviewed s/sx of labor, SROM. Possibly interested in elective IOL for hx of precipitous delivery even if Ab titers stable. Daily movement monitoring, seek eval if any decrease RTC 1 weeks or sooner as needed. Has all appts scheduled out. DONNIE Recinos .................... 01/20/2025 8:33 AM T STACKER Progress Notes - OB Encounte r - 01/05/2025 - GA:34w2d 01/05/2025 - - Ori Marsh NP Routine OB S. Erin Martinez is a 34 y.o. at 34w2d presents for routine OB visit. She followed up with her PCP for evaluation for cardiac issues. Holter monitor was prescribed. Today is her last day using the monitor. Denies any cardiac symptoms. Reports adequate movement. Denies vaginal bleeding or leaking fluid. O. PHYSICAL EXAM BP 122/60 (Cuff Site: Right Arm, Position: Sitting, Cuff Size: Adult Regular) Pulse 72 LMP 05/10/2024 (Exact Date) General Appearance: Alert, appropriate appearance for age. No acute distress movement: Present FH: 35 cm FHR by doppler: 140-150 A/P: GBS swab and hemoglobin next visit Third trimester bleeding precautions and preE discussed Encourage daily kick counts Return to clinic in 2 weeks for AYLA visit Carolina Marsh NP .................... 01/05/2025 8:20 AM T STACKER Progress Notes - OB Encounte r - 12/22/2024 - GA:32w2d 12/22/2024 - 32w2d - Blanche Brown MD Feeling okay. Positive movement No contractions Has had some irregularities of heart beat. They are 'jarring to the patient . Almost lurching Does not last long. Denies associated shortness of breath, chest pain , or pain in arms. Has happened multiple times and yesterday when was just sitting in the afternoon Patient does not have primary. Lives near [place] Chest: clear to auscultation CV : regular rate and rhythm PLAN: To Primary care for evaluation Consider EKG, Holter monitor. Check antibody titer today Return to clinic in 2 wks Blanche Brown MD T STACKER Progress Notes - OB Encounte r - 12/08/2024 - GA:30w2d 12/08/2024 - 30w2d - Ori Marsh NP Routine OB Erin Martinez is a 34 y.o. at 30w2d presents for routine OB visit. Reports active fetus. Doing well overall. Concerns/complaints: No Contractions/pelvic cramping: No Vaginal bleeding: No Leakage of fluid: No movement: active baby Plan: Blood pressure: 90/60, Pulse: 80 Signs of hypotension reviewed Pt has BP cuff at home Encourage to switch position from sitting to standing slowly Third trimester bleeding precaution discussed labor reviewed Return to clinic in 2 weeks Carolina Marsh NP .................... 12/08/2024 1:56 PM T STACKER T STACKER Progress Notes - OB Encounte r - 11/26/2024 - GA:28w4d 11/26/2024 - 28w4d - Blanceh Brown MD Positive movement Some discomfort on right pelvis. No contractions Getting TDAP today. PLAN: Return to clinic in 2 wks Blanche Brown MD T STACKER Progress Notes - Hospital En counter - 11/25/2024 - GA:28w3d 11/25/2024 - 28w3d - Elijah Jarvis MBBS MPP Ultrasound Visit Your patient had an ultrasound with [facility] on 11/25/2024. The report is ready and can be found in the Results review section [facility]. Recommendations regarding further care are listed below. The Impression from the report is below. Thank you for sending her to see us. 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 presentation is Cephalic. EFW 1405 grams, percentile: 72. Deepest Vertical Pocket of amniotic fluid: 5.7 cm. No major anomalies were identified on limited survey. Appropriate symmetric interval growth. Placental location: Anterior. The transabdominal cervical length is 4.3 cm. RECOMMENDATIONS: -Return to primary OB provider for continued care. -Present findings are reassuring. -A follow up ultrasound for growth is planned in 8 weeks. -Continue monthly antibody titers as planned. COMMENT: The patient was seen by the Perinatologist today. The previous ultrasound and the records were reviewed. The results of today's ultrasound were communicated to the patient. Government regulations related to the 21st Century Cures act require that this note be released to the patient immediately, sometimes before the referring provider has been contacted. A portion of the information was presented verbally to the patient. The remainder is submitted as background for the referring provider, to be discussed as needed. 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 Limited Data including review of prior ultrasound and review of prior external notes Minimal risk of morbidity or mortality to the fetus from additional testing. Services Provided: Procedures Code FOLLOW UP GROWTH 35590.0 T STACKER Progress Notes - OB Encounte r - 11/07/2024 - GA:25w6d 11/07/2024 - wd - Blanche Brown MD Positive movement No contractions Anti arias antibody. Getting follow up every 4 weeks > now ordered out to the end No problems. PLAN: Follow up for 28 week labs. Blanche Brown MD T STACKER Progress Notes - OB Encounte r - 10/02/2024 - GA:20w5d 10/02/2024 - wd - Emperatriz Castelan MD TELEPHONE VISIT Rooming As the provider for this telephone service, I attest that I introduced myself to the patient, provided my credentials, disclosed my location, and determined that, based on a review of the patient's chart and/or a discussion with members of the patient's treatment team, a telephone visit is an appropriate and effective means of providing this service. The patient and I mutually agree that this visit is appropriate for telephone as well. Patient location (originating site city/state): [place] Provider location (distant site city/state): [place] Telephone start time (include am/pm designation): 11:15 AM Telephone end time (include am/pm designation): 11:30 AM Total time preparing to see this patient, [id number] time, and coordinating care time on the same calendar date: 10 minutes. Chief Complaint Patient presents with Telehealth 20w5d [place]:05/17/2025 FAS:09/30/2024 Rh+ Nurse/Clinic Staff Only No vitals taken, virtual visit Nursing Notes: JabariRosemaryKAN 10/02/2024 11:20 AM Signed Chief Complaint Patient presents with Telehealth 20w5d [place]:05/17/2025 FAS:09/30/2024 Rh+ Nurse/Clinic Staff Only No vitals taken, virtual visit Anatomy Screen completed: 09/30/2024 AVS Given: no Does patient have second lab pending for screening: no If yes, send to lab to completed at today's visit. Health Maintenance Due Topic Date Due Influenza for age 9-49 07/20/2024 COVID-19 vaccine series ( season) Never done Rosemary. R, SEGMENTAL [employer]ER INSTALLER....... 10/02/2024 11:20 AM Subjective SUBJECTIVE: HPI Erin Martinez is called today to discuss recent results of Detailed Anatomical Surveillance Scan. course is complicated by (+) AMA and (+) ANTI ARIAS) antibody with titer of 1:2 ( noted in 2 previous pregnancies), declined serum screening normal appearing detailed US results, no markers for aneuploidy anterior placenta with no previa.Plan serial growth and monthly titers as previously discussed. Reports (+) movement. Review of Systems Per HPI/Subjective. Patient's past medical, surgical, social and family histories are reviewed today and updated where appropriate. Objective OBJECTIVE: GEN: no acute distress ENT: hearing with no difficulties RESP: talking easily in full sentences with no labored breathing NEURO: alert and oriented x 3 PSYCH: affect normal Assessment Plan ASSESSMENT AND PLAN: 34y.o. @ 20w+5d doing well Follow up in 4 weeks 2nd trimester bleeding precautions given Labor precautions given. Patient Instructions Why is movement important? movement usually starts at about 20 weeks of . As your baby gets bigger, you will feel kicks, stretches, moves and flips. Around 36 weeks, the baby gets somewhat crowded in the uterus. At this time, you may notice that the movement is not the same. It may feel more subtle. If your baby is moving or kicking less than normal, he or she may be trying to tell you that he/she is under some stress or a problem may be developing. How much should my baby move? All babies and moms are different. For this reason, it is important to become aware of your babies movement and then watch for changes in the movement. At about 24 weeks of , most moms feel daily movement and it becomes more consistent. Generally, you should be able to feel movement at ten different times during the day. How should I monitor movement? We recommend that you become aware of your baby's movement. If you notice a period of time where the baby doesn't move, then you should try to get the baby to move. Remember that your baby has a sleep-awake cycle just like a . Babies tend to sleep for periods of 20 to 75 minutes. It is important to monitor movement when your baby is awake. Generally, you should feel your baby move at least 10 times every day. There are also ways to monitor movement in the health care setting, such as non-stress tests and biophysical profiles. These methods are generally reserved for high risk pregnancies. What should I do if I notice decreased movement? If you notice that your baby is not moving as much as he/she normally does, then you should try to get him/her to move, by doing the following: Eat or drink something cold or sweet. Empty your bladder. Sit down, relax, and focus on your baby. if you don't feel movement within 30 minutes, or you don t feel 10 movements in 2 hours, call the office [phone]. Diet During It s important to eat a well-balanced diet while you are . Here you will learn what foods you should eat. You will also find out foods you should avoid and foods that can help some of the unpleasant side effects of . What foods do I need to eat? Eating regular, well-balanced meals is more important when you are than at any other time of your life. What you eat provides nutrition for your baby as well as yourself. The best time to start eating a healthy diet is before you get . You may need more calories and protein while you are . You should eat between 60 and 70 grams (g) of protein a day. Most women already eat enough protein to give their bodies what they need during . However, if you are a vegetarian or don t eat much meat or dairy, you may not be getting enough protein. Healthy protein sources include lean meats, skinless poultry, fish, low-fat milk products, eggs, beans, peas, and nuts. You need more of certain vitamins and minerals, too--especially folic acid and iron. And you need to be sure to get enough calcium and vitamin D. These nutrients are important for your baby s growth and development, helping your baby have strong bones and teeth, healthy skin, and a healthy body. How do I know if I am eating a healthy diet? Eat a variety of whole, fresh foods. Use the following information as a guideline for what you should eat every day. Depending on your particular needs, you may need more or fewer servings each day. Protein: 5 and 1/2 to 7 ounces (oz) a day One ounce of protein is equal to: 1 oz of lean meat, poultry, or fish 1 egg or 2 egg whites 1/2 cup cooked dried beans 1/2 cup tofu 1/4 cup nuts 2 tablespoon peanut butter Grains: 6 to 8 oz every day One ounce of grains is equal to: 1/2 cup pasta 1/2 cup cooked cereal 1/2 cup brown rice 1 slice of bread Choose whole grains more often. Fruits: 2 cups every day One half cup is equal to: 1 small banana or round fresh fruit 1/2 cup fruit juice 1/2 cup fresh, frozen, or canned fruit 1/4 cup dried fruit 16 grapes Vegetables: 2 and 1/2 to 3 cups every day 1 cup of vegetables is equal to: 1 cup raw or cooked vegetables 1 cup vegetable juice 2 cups raw leafy greens Dairy (Milk) Products: 3 cups every day 1 cup of dairy product is equal to: 1 cup milk 1 cup yogurt 1 and 1/2 oz of hard cheese 2 oz of processed cheese. It s best to choose low-fat or nonfat dairy products. Healthy Fats: Eat fats, such as canola and olive oils, avocado, soft (no trans- fat) margarines, mayonnaise, and oil based salad dressings in moderation. Fluids: Try to drink at least 8 cups of fluids each day. The fluids should be low in fat and sugar. What if I am gaining more weight than my provider recommends? In general, you need about 300 more food calories a day than when you were not . The number of extra calories that s right for you depends on your how much you ate and weighed before you got . Your healthcare provider will suggest a range of weight that you should gain. The usual recommended gain is about 20 to 35 pounds. If you are gaining too much weight: Keep eating the recommended servings for all of the food groups, but make lower fat choices. Avoid high-fat, high-sugar treats and high-calorie drinks, such as soda pop or large servings of juice. Get enough exercise at the level your healthcare provider recommends. Do I need to take dietary supplements? Your healthcare provider will most likely prescribe a vitamin and mineral supplement. This will help make sure you get the vitamins and minerals you need, such as calcium, iron, and folic acid. Calcium: Calcium needs for women are the same as for women who are not : 1000 milligrams (mg) a day for adult women and 1300 mg a day for adolescents. Many women do not get enough calcium in their diet, so it's important to make sure you're meeting your calcium needs every day. Dairy products such as milk, yogurt, cheese, and smoothies are great sources of calcium. Vitamin D: The current recommendation for all adults younger than 50 (including women) is 200 IU (international units) of vitamin D each day. Many health professionals question if this is enough and recommend increasing to 400 IU. Ask your healthcare provider how much vitamin D you need. Getting enough sunlight, drinking milk, and taking a supplement is recommended. Folic acid: Folic acid is important for spinal cord development of the baby. women need 400 micrograms (mcg) a day. Synthetic folic acid added to fortified foods and vitamin supplements is almost twice as well absorbed as the folic acid in natural foods. It is recommended that women get 400 mcg of folic acid from fortified foods (cereals and whole grains) and supplements, in addition to eating foods that are good sources of folate, such as legumes and leafy green vegetables. Read labels. Many foods are supplemented, and you should not have more than 1,000 mcg each day. Ask your provider if you need a folic acid supplement. Iron: Women need 30 mg of iron a day during the last half of . You may need an iron supplement to get enough iron. If you are carrying twins or the level of iron in your blood is low, you may need more than 30 mg of iron a day. Don t take an iron supplement in addition to the iron already in your vitamin unless your healthcare provider prescribes it. Foods rich in iron are: lean red meats, pork, chicken, and fish fortified cereals dried fruit leafy green vegetables beans eggs liver kidneys whole-grain or enriched bread Is it OK to follow a vegetarian diet while I am ? If you do not eat any animal foods, it may be hard to get enough important nutrients, including protein, iron, vitamin B12, and vitamin D. Your healthcare provider may ask you to meet with a dietitian to help you plan your meals, and additional supplements may be recommended. If you include dairy and eggs in your diet, vitamins may be the only supplements you need. What foods and substances should I avoid when I am ? Avoid alcoholic drinks (wine, beer, or liquor), tobacco, and drugs. Check with your healthcare provider before you take any medicines or herbal supplements. Some medicines and supplements can cause defects. Limit caffeine. High amounts of caffeine from coffee, tea, soft drinks, and chocolate could increase the risk to your baby. Caffeine can cross the placenta and affect your baby s breathing and heart rate. As little as 200 mg of caffeine a day (the amount of caffeine in one 12-ounce cup of regular brewed coffee) may slow the growth of your baby. Some healthcare providers recommend no caffeine during the first trimester and no more than 200 mg a day during the second and third trimesters. Avoid herbal teas unless your provider recommends them. Some herbal teas, if drunk in large amounts, may cause early contractions and increase your risk for early () labor. Avoid meat, fish, shellfish, and eggs that are raw or undercooked. Also avoid foods from deli counters, or thoroughly reheat cold cuts before you eat them. Cook leftover foods or nosvj-ii-eqo foods, such as hot dogs, until they are steaming hot before you eat them. Do not eat soft cheeses, such as Brie, Camembert, feta, blue-veined cheeses, queso fresco or queso turpin, and panela, unless the label says they are pasteurized or made from pasteurized milk. The pasteurization process kills bacteria called listeria, which live in unpasteurized soft cheeses and are dangerous for women and their newborns. Although most cheeses processed in this country are pasteurized, there is no guarantee. Always read the labels. If you are unsure which soft cheeses are safe, you may choose to avoid soft cheeses altogether. Hard cheese (such as cheddar), processed cheese slices, cottage cheese, and cream cheese are safe. Do not eat or drink any other unpasteurized dairy products, such as unpasteurized milk. Avoid raw vegetable sprouts and fresh, unpasteurized fruit and vegetable juices. They can carry disease-causing bacteria. Avoid anything that is not food. Sometimes women crave something that is not food, such as laundry starch, dirt, shonna, or ice. This condition is called pica, and you need to tell your healthcare provider if you are having this kind of craving. Pica can cause poor nutrition for you and your baby. It can also make it hard for you to gain weight and is dangerous to your health. Keep following these recommendations while you are breast-feeding your baby. You do not have to eat a low-salt diet during . A moderate amount of salt helps keep proper levels of sodium in your body as your baby develops. Use iodized salt. Is it OK to eat fish? Fish and shellfish are an important part of a healthy diet. They contain good protein and other essential nutrients. They are low in saturated fat, and many fish contain omega-3 fatty acids, which have been shown to help brain development in babies. However, nearly all fish and shellfish contain traces of mercury. Mercury can harm an unborn baby's developing brain and nerves. Some fish and shellfish have higher levels of mercury than others. The Food and Drug Administration (FDA) advises women who may become or who are to avoid some types of fish with high mercury levels. Nursing mothers and young children should also avoid these fish. Here are some guidelines for eating fish and other types of seafood based on their estimated mercury content. Don t eat shark, swordfish, rose mackerel, or tilefish (also called shah or white snapper). These fish contain the highest levels of mercury. You can eat up to 6 ounces of canned white (albacore) tuna, tuna steak, or halibut each week. Choose shrimp, scallops, salmon, pollock, cod, catfish, or light canned tuna. These types of fish and seafood contain less mercury. Don t eat more than 2 servings, or a total of 12 oz, of fish each week. Eating oysters and clams may increase your risk for infection. Avoid eating them or make sure to boil them for at least 4 to 6 minutes (as you should do with all shellfish). Most fish should be cooked to an internal temperature of 145 F (63 C). Do not eat refrigerated smoked seafood unless it is contained in a cooked dish, such as a casserole. Refrigerated smoked seafood, such as salmon, trout, whitefish, cod, tuna, and mackerel, is most often labeled as nova-style, lox, kippered, smoked or jerky. Check local advisories about the safety of fish caught in local lakes, [place], and coastal areas. If no advice is available, you can eat up to 6 ounces (one average meal) per week of fish caught from local fischer, but don't eat any other fish during that week. What should I do if I don't feel like eating or if I have other digestive problems? Morning sickness Many women have morning sickness during the early months of . In early , the changes in your body can cause you to feel nauseated when you eat or smell certain foods or when you get tired or anxious. In most cases, symptoms of nausea and vomiting are less common by the second trimester. When you are feeling sick, it may help if you: Eat crackers, pretzels, or dry cereal before you get out of bed in the morning. Eat small meals often. Avoid greasy, fried, or spicy foods that may upset your stomach. Drink plenty of liquids, but between meals rather than with them. Try crushed ice, fruit juice, or fruit-ice pops if water makes you feel nauseous. Avoid unpleasant odors. Get enough rest. Roman has been shown to help some women have less nausea, but you should talk to your healthcare provider about this before you add roman to your diet. Constipation To help relieve constipation: Eat more fresh fruits, vegetables, high-fiber breads, and cereals. Get as much as exercise as you can. Walking and swimming are good choices. Try fiber supplements such as psyllium powder, Metamucil, or Citrucel. (You must drink plenty of fluids when taking these supplements.) Do not use any other laxatives unless your healthcare provider tells you to. Diarrhea Try eating more yogurt with active cultures, rice, dry toast, or bananas. Ask your provider about taking Pepto-Bismol or Maalox. Heartburn For heartburn you should: Eat 5 or 6 small meals a day instead of 2 or 3 large meals. Avoid foods that commonly cause symptoms, such as spicy and fried foods, orange and grapefruit juices, peppermint, garlic, and onions. Bake or broil your food instead of frying it. Cut down on soft drinks, chocolate, coffee, and other drinks with caffeine. Drink instead water, milk, and apple or cranberry juice. Don't lie down for at least 1 to 2 hours after you eat. If heartburn gets worse when you lie down, raise the head of your bed 4 to 6 inches. Ask your healthcare provider if you can use an antacid. How can I get more information? For a more individualized approach to meal planning during your , go to MyPyramid Plan for Moms at http://www.mypyramid.gov/mypyramidmoms/pyramidmoms_plan.aspx. You can also ask your healthcare provider for advice. Your provider may refer you to a driller and reamer. If you need financial help buying healthy foods, a government program called the Special Supplemental Food Program for Women, Infants, and Children (WIC) can help you buy foods like milk, eggs, cheese, and bread. 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 Pt is worried about starting this with titer 1:2, which was the peak at the end of her last pregnancies. Declined genetic screening, states her has never been tested. Assessment Histories reviewed today include: Past Medical History, Past Surgical History, Social History and Family History and Obstetric History. Refer to the corresponding sections of the history section of [facility] chart and the [facility] Navigator for details. Assessment: Patient's perception of movement: Present. Normal movement discussed. A formal ultrasound was done at today's visit-see report. Preferred delivery location: [facility] Education Some basic routine education done during assessment. See patient education section for details. Patient states that all her questions were answered. Scheduled to see Dr Castillo today. After Visit Summary created, discussed and supplied to patient? Yes Is referring provider within [facility]? yes Consult note forwarded: N/A Face to Face RN time: 30 min RADHA LINARES RN 09/30/2024 8:50 AM T STACKER Progress Notes - OB Encounte r - 08/26/2024 - GA:15w3d 08/26/2024 - - Emperatriz Castelan MD Routine Obstetrical APPOINTMENT- @ 15w+4dwega PROBLEMS: AMA Grand-multiparity H/O (+) Antibody cyktwm-Caqq-Qowf will follow titers S: Erin is doing well. She reports a little more energy but is still fatigued. Denies VB/Cramping/LOF/CTX. O: BP 102/60 (Cuff Site: Right Arm, Position: Sitting, Cuff Size: Adult Regular) Wt 63 kg (139 lb) LMP 05/10/2024 (Exact Date) BMI 23.31 kg/m Gen: Well appearing in NAD A/P: Healthy, 34 y.o. @ 15w+4d wega doing well RTC in 4 weeks for next AYLA appt Plan detailed US with MPP @19- wega Antibody tier ordered today-will be instructed by front end driver where to go for blood draw Reviewed labor precautions Preeclampsia precautions given 2nd trimester bleeding precautions given Progress Notes - OB Encounte r - 07/25/2024 - GA:10w6d 07/25/2024 - wd - Blanche Brown MD Erin Martinez is a 33 y.o. female at 11 weeks presents for new ob. Patient complains of nausea, fatigue. DEPRESSION SCREEN PHQ Score and Severity Date of PHQ exam: 07/25/24 PHQ-2 TOTAL SCORE: 0 PHQ-9 TOTAL SCORE: 4 Depression Severity Level: none Intervention: Not Depressed QS, US,NT, ZENAIDA-A, AMNIO discussed AMA yes Previous na Diet:healthy Calcium:milk, yogurt, cheese, greens Exercise :walks ROS general--neg HEENT-- neg Respiratory--neg CV--neg GI--neg --neg Musculoskelatal--neg Neuro--neg Endo--neg Derm--neg Psych--neg Past Medical History: . Date Abnormal antibody titer 2016 Anti-Arias antibody Family history of breast cancer 06/19/2019 Start screening mammo and breast MRI age 35; candidate for genetic testing. Pt's mom at age 47, at 52. also maternal aunt had breast cancer Herpes Hx infrequent cold sores Polycystic ovary syndrome 2013 hormone dx, Hx of period only 3 times in high school, did not have difficulty getting Rh incompatibility Anti-Arias antibody; Anti Duff b antibody Varicella Vitamin D deficiency Past Surgical History: . Laterality Date NO PREVIOUS SURGERY Medications: Current Outpatient Medications: Qqmjpksx-Ri-Tto-Fe-FA tab tablet, Take 1 tablet by mouth once daily., Disp: , Rfl: 0 progesterone micronized (Prometrium) 200 mg capsule, Insert 1 Capsule (200 mg) into the vagina at bedtime. This product contains peanut oil. Please verify patient allergies., Disp: 40 Capsule, Rfl: 1 Medications have been reviewed by me and are current to the best of my knowledge and ability. Allergies: Blood-group specific substance and Egg derived Social History Socioeconomic History Marital status: Tobacco Use Smoking status: Never Passive exposure: Never Smokeless tobacco: Never Vaping Use Vaping status: Never Used Substance and Sexual Activity Alcohol use: Never Drug use: Never Sexual activity: Yes Partners: Male Comment: Other Topics Concern Service No Blood Transfusions No Caffeine Concern No Occupational Exposure No Hobby Hazards No Sleep Concern Yes Stress Concern No Special Diet No Back Care Yes Comment: sciatic nerve pinching, has seen PT in past for and does exercises Exercise Yes Comment: lives [place] farm, lots of chores and movement Seat Belt Yes Comment: wears them Self-Exams Yes Comment: does them Social History Narrative 08/2019: Lives with Marcel and 3 sons ages 5,4 2. 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: Stay at home Speaks Croatian No oriental orthodox or cultural practices identified that would affect care--J[employer] Witness Ob History OB History Para Term AB Living 7 5 5 0 1 5 SAB IAB Ectopic Multiple Live Births 1 0 0 0 5 # Outcome Date GA Lbr Rodrigo/2nd Weight Sex Type Anes PTL Lv 7 Current 6 Term 01/29/22 39w3d 09:03 / 00:07 3.9 kg (8 lb 9.6 oz) F VAGINAL MACI EPIDURAL MEAGAN 5 Term 03/09/20 38w2d 3.12 kg (6 lb 14.1 oz) M VAGINAL MACI NONE N MEAGAN Comments: increased antibody titer 4 Term 06/08/17 41w1d 3.7 kg (8 lb 2.5 oz) M Vag-Spont None N MEAGAN 3 Term 06/29/15 41w0d 3.48 kg (7 lb 10.8 oz) M Vag-Spont NONE, Local N MEAGAN Comments: 50 min labor with PPH (delivered in ED) Complications: Other Excessive Bleeding, Precipitous labor (< 3 hours) 2 Term 12/23/13 40w5d 3.74 kg (8 lb 4 oz) M VAGINAL MACI NONE N MEAGAN Comments: HTN in labor; oligohydramnios 40w5d week induction 1 SAB 07/2013 7w0d SPONTANEOUS PHYSICAL EXAM BP 106/70 (Cuff Site: Right Arm, Position: Sitting, Cuff Size: Adult Regular) Pulse 84 Ht 1.645 m (5' 4.75) Wt 60.9 kg (134 lb 3.2 oz) LMP 05/10/2024 (Exact Date) BMI 22.50 kg/m EXAM ADULT [employer] EXAM: General Appearance: Alert, appropriate appearance for age. No acute distress, HEENT Exam: Grossly normal. Neck / Thyroid Exam: Supple, no masses, nodes or enlargement. Chest/Respiratory Exam: . Clear to auscultation. bilaterally, Breast Exam: . No masses or nodes. Cardiovascular Exam: Regular rate and rhythm. S1, S2, no murmur, Gastrointestinal Exam: Soft, non-tender, no masses or organomegaly. Pelvic Exam Female: Vulva and vagina appear normal. Bimanual exam reveals uterus consistent with gestational age and normal adnexa. , Pelvimetry - normal, Rectovaginal Exam: deferred, Musculoskeletal Exam: full ROM of upper and lower extremities., Skin: no rash or abnormalities, Lymphatics: no nodes palpable, Neurologic Exam: Normal gait and speech, no tremor., Psychiatric Exam: Alert and oriented, appropriate affect. HR: 170's IMPRESSION first visit. Size equals dates. BMI normal Advanced maternal age . Declines testing and level 2 Anti-Arias AB PLAN Check labs as per above. Return to clinic in 4 weeks. Will need monthly titers Schedule appts til end 2023 Orders Placed This Encounter US OB BASIC ANATOMY SCREEN SINGLE TA GC CHLAMYDIA TRACH PROBE CLICKING MACHINE OPERATOR THIN PREP PAP SCREEN IMAGED Reviewed health maintenance issues including diet, exercise, daily vitamins, child classes, choosing a appraiser boats and marine, and regular exams. We also discussed testing including ultrasounds, quad screen and cystic fibrosis screening. She was encouraged to call the office with any questions or concerns. Progress Notes - Phone OB En counter - 07/08/2024 - GA:8w3d 07/08/2024 - 8w3d - Jenifer Oden RN TELEHEALTH (required for all telehealth visits): As the provider for this telehealth service, I attest that I introduced myself to the patient, provided my credentials, disclosed my location, and determined that, based on a review of the patients chart and/or a discussion with members of the patient's treatment team, telemedicine via a real-time, two-way, interactive audio and video platform is an appropriate and effective means of providing this service. The patient and I mutually agree that this visit is appropriate for telemedicine as well. Patient Location (originating site [facility]): [place], [place] Provider Location (distant site city/state): [place], [place] Video start time (include am/pm designation): 3:15 PM Video end time (include am/pm designation): 3:50 PM Patient had phone ob visit so no vital signs or in person height or weight obtained. Patient will receive educational hard copies of materials at her IOB. Material was sent via the patient's [employer] account. Patient will call and schedule her dating US. IOB and 16 week appointments scheduled. Patient to see Dr. Blanche Brown at 10.6 wks gestation. Daytime Ph#: [phone] [place] for detailed msg: Yes * US: Scheduled 07/23/2024 * Medical Hx: AMA, Hx Abnormal Antibody Titer (Anti Arias a), Hx PCOS, Hx Vaginal Delivery x 5 [place] GTT indicated: No * Patients LMP: 05/10/2024 - Regular Period * [place]: 02/14/2025 * Gestational Age @ Intake Visit: 8.3 weeks * Sequential Screen, Integrated, First trimester screen, Panorama Testing, Cystic Fibrosis Screening pamphlet/info reviewed. Pt instructed on timing of test, scheduling information and advised to verify coverage with insurance carrier prior to testing. Patient will call if testing is desired. Discussed follow-up steps if patient were to have a positive screen. Understanding verbalized. * OB visit summary/clinic info, nausea/vomiting tips, safe OTC medications in and frequently asked questions material reviewed with patient. * Smoking Cessation information given to patient: N/A * Denies History of (+) test/culture MDRO/ Multi drug resistant organisms. This represents: VRE, MRSA & ESBL Domestic Violence Screen: Denies SYMPTOMS: Missed period+ Nausea+ Fatigue+ Increased urinary frequency+ My Chart: Active Flu Vaccine: COVID-19 Vaccine: Declined Jenifer Oden, RN, Women's Health Triage.......... 07/08/2024 3:39 PM Last Filed Vital Signs Vital Sign Reading Time Taken Comments Blood Pressure 123/84 02/21/2025 8:30 AM CDT Pulse 78 02/21/2025 8:30 AM CDT Temperature 36.7 C (98.1 F) 02/21/2025 8:30 AM CDT Respiratory Rate 16 02/21/2025 8:30 AM CDT Oxygen Saturation 98% 02/21/2025 8:30 AM CDT Inhaled Oxygen Concentration - - Weight 64.6 kg (142 lb 8 oz) 02/21/2025 12:33 AM CDT Height 162.6 cm (5' 4) 02/19/2025 12:03 AM CDT Body Mass Index 24.46 02/19/2025 12:03 AM CDT Plan of Treatment Upcoming Encounters Date Type Department Care Team (Late st Contact Info) Description 02/26/2025 1:00 PM CDT [facility] [address] [address] [place] [address] [place] [address] 04/16/2025 8:20 AM CDT Office Visit [facility] [address] [facility] [place] [address] [place] [phone] Blanche Brown MD [address] [facility] [address] [place] [address] 04/28/2025 8:00 AM CDT Office Visit [facility] [address] [place] [phone] Eun Gutierrez MD [address] [place] [address] Health Maintenance Due Date Last Done Comments Pneumococcal series for age 6-49 (1 of 2 - PCV) 2007 COVID-19 vaccine series (1 - 2023-25 season) 2024 Depression screening for age 12+ 11/26/2025 11/26/2024, 07/28/2024, 07/28/2024, Additional history exists BMI (ht and wt on same day) for age 18+ 01/19/2026 01/19/2025, 07/25/2024, 07/08/2024, Additional history exists Pap test for age 21-65 07/25/2029 , 07/25/2024, 09/05/2019, Additional history exists Tetanus booster 11/26/2034 11/26/2024, 10/20, 12/29/2019, Additional history exists HIV for age 15-65 Completed 07/25/2024, , 08/13/2019 Hepatitis C screening for ag e 18-79 Completed 07/25/2024, 08/04/2021, 08/13/2019 Influenza Vaccine Completed 11/07/2024, 12/03/2019 Tdap Completed 11/26/2024, 10/20, 12/29/2019, Additional history exists Procedures Procedure Name Priority Date/Time Associated Diagnosis Comments MAGNESIUM STAT 02/19/2025 7:45 AM CDT COMP METABOLIC PANEL Early AM 02/19/2025 7:45 AM CDT CBC W PLT NO DIFF Early AM 02/19/2025 7:4 5 AM CDT PROTEIN/CREAT RATIO,URINE Today 02/18/2025 11:13 PM CDT PRO-BNP STAT 02/18/2025 11:00 PM CDT COMP METABOLIC PANEL Today 02/18/2025 11:00 PM CDT CBC W PLT NO DIFF Today 02/18/2025 11: 00 PM CDT CBC W PLT NO DIFF Routine 02/13/2025 10: 38 AM CDT hypertension (HC) COMP METABOLIC PANEL Routine 02/13/2025 10:38 AM CDT hypertension (HC) PRO-BNP STAT 02/12/2025 12:39 AM CDT COMP METABOLIC PANEL STAT 02/12/2025 12:39 AM CDT CBC W PLT NO DIFF STAT 02/12/2025 12: 39 AM CDT PRO-BNP ANATOLY 02/10/2025 11:35 AM CDT PLATELET COUNT ANATOLY 02/10/2025 11:35 AM CDT HEMOGLOBIN ANATOLY 02/10/2025 11:35 AM CDT COMP METABOLIC PANEL ANATOLY 02/10/2025 11:35 AM CDT HCHG TUBING PR5 Routine 02/08/2025 10:47 AM CDT HCHG LABOR EPIDURAL INITIAL Routine 02/08/2025 10:47 AM CDT EPIDURAL BLOCK Routine 02/08/2025 10:47 AM CDT HCHG DRSG PR1 Routine 02/08/2025 10:47 AM CDT HCHG KIT EPIDURAL PR10 Routine 10:47 AM CDT RED BLOOD CELLS EA UNIT ANATOLY 02/07/2025 10:49 PM CDT RED BLOOD CELLS EA UNIT ANATOLY 02/07/2025 10:49 PM CDT PROTEIN/CREAT RATIO,URINE ANATOLY 02/07/2025 9:12 PM CDT TYPE & SCREEN ANATOLY 02/07/2025 9:06 PM CDT TREPONEMA PALLIDUM ANATOLY 02/07/2025 9: 06 PM CDT COMP METABOLIC PANEL ANATOLY 02/07/2025 9:06 PM CDT CBC W PLT NO DIFF ANATOLY 02/07/2025 9:0 6 PM CDT US OB FOLLOW UP ANY TRI SINGLE TA Routine 01/27/2025 1:06 PM CDT High-risk in third trimester (HC) HEMOGLOBIN Routine 01/26/2025 2:47 PM CDT Anemia affecting in third trimester (HC) ANTIBODY IDENTIFICATION LAB USE ONLY Routine 01/26/2025 2:45 PM CDT Abnormal antibody titer ANTIBODY TITER CHARGE Routine 01/26/2025 2:45 PM CDT PANEL-ABBREVIATED Routine 01/26/2025 2:4 5 PM CDT ANTIBODY IDENTIFICATION EACH PANEL Routine 01/26/2025 2:45 PM CDT ANTIBODY TITER Routine 01/26/2025 2:45 PM CDT Abnormal antibody titer VAGINAL/RECTAL OB STREP PCR Routine 01/20/2025 8:20 AM SHIFT STACKER Supervision of other normal , antepartum (HC) EXTENDED HOLTER Routine 01/13/2025 Palpitations COMP METABOLIC PANEL Routine 12/22/2024 11:08 AM SHIFT STACKER Palpitations CBC WITH AUTO DIFFERENTIAL Routine 12/22/2024 11:08 AM SHIFT STACKER Palpitations TSH WITH REFLEX Routine 12/22/2024 11:08 AM SHIFT STACKER Palpitations ANTIBODY TITER Routine 12/22/2024 8:42 AM SHIFT STACKER Abnormal antibody titer ANTIBODY TITER CHARGE Routine 12/22/2024 8:40 AM SHIFT STACKER ANTIBODY IDENTIFICATION EACH PANEL Routine 12/22/2024 8:40 AM SHIFT STACKER EKG 12 LEAD Routine 12/22/2024 12:00 AM SHIFT STACKER Palpitations ANTI HIV 1/2 Routine 07/25/2024 2:40 PM CDT Supervision of other normal , antepartum (HC) ANTI HCV Routine 07/25/2024 2:40 PM CDT Supervision of other normal , antepartum (HC) HPV HIGH RISK Routine 07/25/2024 2:20 PM CDT Screening for malignant neoplasm of cervix from Last 3 Months or Most Recently Relevant to Health Maintenance Results * CBC W PLT NO DIFF (02/19/2025 7:45 AM CDT) Only the most recent of5 resultswithin the time period is included. WHITE BLOOD COUNT 5.1 4.5 - 11.0 thou/cu mm 02/19/2025 8:00 AM CDT [facility] RED BLOOD COUNT 5.05 4.00 - 5.20 mil/cu mm 02/19/2025 8:00 AM CDT [facility] HEMOGLOBIN 13.9 12.0 - 16.0 g/dL 02/19/2025 8:00 AM CDT [facility] HEMATOCRIT 42.0 33.0 - 51.0 % 02/19/2025 8:00 AM CDT [facility] MCV 83 80 - 100 fL 02/19/2025 8:00 AM CDT [facility] MCH 27.5 26.0 - 34.0 pg 02/19/2025 8:00 AM CDT [facility] MCHC 33.1 32.0 - 36.0 g/dL 02/19/2025 8:00 AM CDT [facility] RDW 14.2 11.5 - 15.5 % 02/19/2025 8:00 AM CDT [facility] PLATELET COUNT 263 140 - 440 thou/cu mm 02/19/2025 8:00 AM CDT [facility] MPV 10.1 6.5 - 11.0 fL 02/19/2025 8:00 AM CDT [facility] NRBC 0.0 % 02/19/2025 8:00 AM CDT [facility] ABS NRBC 0.0 thou /cu mm 02/19/2025 8:00 AM CDT [facility] Blood BLOOD SPECIMEN / Unknown Venipuncture / Unknown 02/19/2025 7:45 AM CDT 02/19/2025 7:53 AM CDT us Ayesha Lyle MD HEMATOLOGY Final Result [facility] SENDOUT INTERNAL ZIP [phone] [place] [phone] * (ABNORMAL) Magnesium PRN (02/19/2025 7:45 AM CDT) MAGNESIUM 5.5(H) 1.6 - 2.6 mg/dL 02/19/2025 8:37 AM CDT [facility] Blood BLOOD SPECIMEN / Unknown Venipuncture / Unknown 02/19/2025 7:45 AM CDT 02/19/2025 7:53 AM CDT us Ayesha Lyle MD CHEMISTRY Final Result [facility] SENDOUT INTERNAL ZIP [address] [place] [address] * (ABNORMAL) COMP METABOLIC PANEL (02/19/2025 7:45 AM CDT) Only the most recent of7 resultswithin the time period is included. SODIUM 135(L) 136 - 145 mmol/L 02/19/2025 8:25 AM [facility] POTASSIUM 3.9 3.5 - 5.1 mmol/L 02/19/2025 8:25 AM [facility] CHLORIDE 100 98 - 107 mmol/L 02/19/2025 8:25 AM [facility] CO2,TOTAL 23 22 - 29 mmol/L 02/19/2025 8:25 AM [facility] ANION GAP 12 5 - 18 02/19/2025 8:25 AM [facility] GLUCOSE 97 70 - 99 mg/dL 02/19/2025 8:25 AM [facility] CALCIUM 7.6(L) 8.8 - 10.4 mg/dL 02/19/2025 8:25 AM [facility] Comment: Reference ranges for this test were updated on 09/23/2024 to reflect our healthy population more accurately. Reference range changes are not retroactively applied to results, but previous results using the same methodology can be interpreted in the context of the new reference range. BUN 13 6 - 20 mg/dL 02/19/2025 8:25 AM [facility] CREATININE 0.68 0.50 - 0.90 mg/dL 02/19/2025 8:25 AM [facility] BUN/CREAT RATIO 19 10 - 20 8:25 AM [facility] eGFR >90 >90 mL/min/1. 73m2 02/19/2025 8:25 AM [facility] Comment:As of 2022, eG FR is calculated by the CKD-EPI creatinine equation without race adjustment. eGFR can be influenced by muscle mass, exercise, and diet. The reported eGFR is an estimation only and is only applicable if the renal function is stable. ALBUMIN 4.1 4.0 - 4.9 g/dL 02/19/2025 8:25 AM [facility] PROTEIN,TOTAL 7.6 6.0 - 8.0 g/dL 02/19/2025 8:25 AM [facility] BILIRUBIN,TOTAL 0.3 0.0 - 1.2 mg/dL 02/19/2025 8:25 AM [facility] ALK PHOSPHATASE 181(H) 35 - 104 IU/L 02/19/2025 8:25 AM CDT [facility] ALT (SGPT) 17 10 - 35 IU/L 02/19/2025 8:25 AM CDT [facility] AST (SGOT) 20 10 - 35 IU/L 02/19/2025 8:25 AM CDT [facility] Blood BLOOD SPECIMEN / Unknown Venipuncture / Unknown 02/19/2025 7:45 AM CDT 02/19/2025 7:53 AM CDT Ayesha Lyle MD CHEMISTRY Final Result Performing Organization Address City/[facility]/ZIP Co de Phone Number [facility] SENDOUT INTERNAL ZIP [id number] [place] [phone] * PROTEIN/CREAT RATIO,URINE (02/18/2025 11:13 PM CDT) Only the most recent of2 resultswithin the time period is included. PROTEIN QUANT,RAND URINE 6 1 - 14 mg/dL 02/18/2025 11:40 PM CDT [facility] CREAT,RANDOM URINE 57.5 28.0 - 217.0 mg/dL 02/18/2025 11:40 PM CDT [facility] PROT/CREAT RATIO,UR 0.1 <0.2 02/18/2025 11:40 PM CDT [facility] Urine URINE SPECIMEN / Unknown Non-Blood / Unknown 02/18/2025 11:13 PM CDT 02/18/2025 11:19 PM CDT Ayesha Lyle MD URINE Final Result [facility] SENDOUT INTERNAL ZIP [address] [place] [address] * PRO-BNP (02/18/2025 11:00 PM CDT) Only the most recent of3 resultswithin the time period is included. PRO-BNP 44 <125 pg/mL 02/18/2025 11:36 PM CDT [facility] Blood BLOOD SPECIMEN / Unknown Non-Lab Venipuncture / Unknown 02/18/2025 11:00 PM CDT 02/18/2025 11:08 PM CDT Narrative [facility] - 02/18/2025 11:36 PM CDT The following cut-points have been suggested for the use of proBNP for the diagnostic evaluation of heart failure (HF) in patient with acute dyspnea. Patients with eGFR >= 60 Diagnosis (rule in CHF) <50 Years Old 450 pg/mL 50 - 75 Years Old 900 pg/mL >75 Years Old 1800 pg/mL Exclusion (rule out CHF) Age Independent 300 pg/mL A cutoff of 1200 pg/mL for patients with an eGFR <60 yields a diagnostic sensitivity of 89% and specificity of 72% for acute congestive heart failure. us Ayesha Lyle MD SEND OUTS Final Result Performing Organization Address City/[facility]/ZIP Co de Phone Number [facility] SENDOUT INTERNAL ZIP [phone] [place] [phone] * PLATELET COUNT (02/10/2025 11:35 AM CDT) Pathologist [facility] [place] PLATELET COUNT 204 140 - 440 thou/cu mm 02/10/2025 11:44 AM CDT [facility] MPV 10.7 6.5 - 11.0 fL 02/10/2025 11:44 AM CDT [facility] Blood BLOOD SPECIMEN / Unknown Venipuncture / Unknown 02/10/2025 11:35 AM CDT 02/10/2025 11:37 AM CDT Iris Power PA HEMATOLOGY Final Result [facility] SENDOUT [place] [address]IP [phone] [place] [address] * (ABNORMAL) HEMOGLOBIN (02/10/2025 11:35 AM CDT) Only the most recent of2 resultswithin the time period is included. HEMOGLOBIN 11.1(L) 12.0 - 16.0 g/dL 02/10/2025 11:44 AM CDT [facility] MCV 84 80 - 100 fL 02/10/2025 11:44 AM CDT [facility] Blood BLOOD SPECIMEN / Unknown Venipuncture / Unknown 02/10/2025 11:35 AM CDT 02/10/2025 11:37 AM CDT Iris FIELDS HEMATOLOGY Final Result [facility] SENDOUT [place] ZIP [address] [address] [place] [address] * HCHG KIT EPIDURAL PR10, HCHG DRSG PR1, EPIDURAL BLOCK, HCHG LABOR EPIDURAL INITIAL, HCHG TUBING PR5(02/08/2025 10:47 AM CDT) Narrative Brian Day MD - 02/08/2025 10:47 AM CDT Brian Day MD 02/08/2025 11:07 AM Labor Analgesia Labor Analgesia Type: epidural Patient location during procedure: OB Time Requested: 02/08/2025 10:45 AM Start time: 02/08/2025 10:47 AM End time: 02/08/2025 11:07 AM Diagnosis: labor pain ASA: 2 Completed: patient identified, risks and benefits discussed, timeout performed, chloraprep used and completely dried prior to procedure and surgical consent Patient position: sitting Patient monitoring: continuous pulse oximetry and blood pressure Approach: midline Prep: chloraprep and sterile drape Supplemental O2: yes Lumbar location: L3-4 Skin Infiltration: lidocaine 1% LEANDRO: air Epidural Location: lumbar Needle and Epidural Catheter Needle type: Kailee Needle gauge: 18 G Needle length: 3.5 in Catheter type: open tip Catheter size: 20 G Aspiration of Catheter: negative Catheter at skin depth: 6 cm Test dose: lidocaine 1.5% with epinephrine 1:200,000 Test dose amount: 3 ml Test dose result: negative Assessment Events: no complications Brian Day MD ANESTHESIA PX NOTE ORDERABLES Final Result * RED BLOOD CELLS EA UNIT (02/07/2025 10:49 PM CDT) Only the most recent of2 resultswithin the time period is included. Pathologist [facility] [place] CROSSMATCH Compatible Compatible [facility] BLOOD BANK PRODUCT BLOOD TYPE O Rh Positive [facility] PRODUCT ID NUMBER [id number] [facility] PRODUCT STATUS /Relea sed [facility] B[facility] PRODUCT DESCRIPTION RBC -1 LR Pt2 [facility] PRODUCT CODE [id number] [facility] Sarah Grove MD BLOOD BANK Edit ed Result - Final Performing Organization Address City/[facility]/ZIP Co de Phone Number [facility] [address] [place] [address] * TREPONEMA PALLIDUM (02/07/2025 9:06 PM CDT) Pathologist [facility] [place] TREPONEMA PALLIDUM Non-Reacti ve Non-Reacti ve 02/08/2025 1:42 AM CDT [facility] Blood BLOOD SPECIMEN / Unknown Non-Lab Venipuncture / Unknown 02/07/2025 9:06 PM CDT 02/07/2025 9:12 PM CDT Sarah Grove MD SEND OUTS [place] l Result [facility] [address] [place] [address], * (ABNORMAL) TYPE & SCREEN (02/07/2025 9:06 PM CDT) Pathologist [facility] [place] ABORH O Rh Positive 02/07/2025 10:50 PM CDT [facility] ANTIBODY SCREEN Positive(A) Negative 02/07/2025 10:50 PM CDT [facility] B[facility] SPECIMEN EXPIRATION DATE/TIME 02/10/25 23:59 02/07/2025 10:50 PM CDT [facility] B[facility] Blood BLOOD SPECIMEN / Unknown Non-Lab Venipuncture / Unknown 02/07/2025 9:06 PM CDT 02/07/2025 9:12 PM CDT Sarah Grove MD BLOOD BANK Parisa farmer Result [facility] BLOOD BANK [address] [place] [address] * US OB FOLLOW UP ANY TRI SINGLE TA (01/27/2025 1:06 PM CDT) Anatomical Region Laterality Modality , 2or 3 TRIMESTER Ultrasound 01/27/2025 12:4 1 PM CDT Narrative 01/27/2025 1:15 PM CDT Referred By: EMPERATRIZ GARCIA MD Indications Code 37 weeks gestation of Z3A.37 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 presentation is Cephalic. EFW 3509 grams, percentile: 80. Deepest Vertical Pocket of amniotic fluid: 3.41 cm. No major anomalies identified on limited survey. Appropriate symmetric growth. Placental location: Anterior. The transabdominal cervical length is not seen. RECOMMENDATIONS: -Return to primary OB provider for continued care. -No alterations in the delivery plan are necessary. -No medication changes are indicated. -No surveillance suggested. -Present findings are reassuring. No further ultrasounds are necessary for the present indication. COMMENT: The patient was seen by the Perinatologist today. The previous ultrasound and the records were reviewed. The results of today's ultrasound were communicated to the patient. 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 Fetus not at significant risk of anemia belwo critical titer so planned induction of labor at 39 weeks is reasonable Government regulations related to the Cures act require that this note be released to the patient immediately, sometimes before the referring provider has been contacted. A portion of the information was presented verbally to the patient. The remainder is submitted as background for the referring provider, to be discussed as needed. Medical Decision Making: Low Complexity [address] Limited Diagnoses including with alloimmunization. Limited Data including review of prior ultrasound and review of prior external notes Minimal risk of morbidity or mortality to the fetus from additional testing. 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 presentation is Cephalic. EFW 3509 grams, percentile: 80. Deepest Vertical Pocket of amniotic fluid: 3.41 cm. No major anomalies identified on limited survey. Appropriate symmetric growth. Placental location: Anterior. The transabdominal cervical length is not seen. RECOMMENDATIONS: -Return to primary OB provider for continued care. -No alterations in the delivery plan are necessary. -No medication changes are indicated. -No surveillance suggested. -Present findings are reassuring. No further ultrasounds are necessary forthe present indication. COMMENT: The patient was seen by the Perinatologist today. The previous ultrasoundand the records were reviewed. The results of today's ultrasound werecommunicated to the patient. 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 Fetus not atsignificant risk of anemia belwo critical titer so planned induction of labor at 39 weeks isreasonable Government regulations related to the Cures act require thatthis note be released to the patient immediately, sometimes before the referring provider hasbeen contacted. A portion of the information was presented verbally to the patient. Theremainder is submitted as background for the referring provider, to be discussed as needed. Medical Decision Making: Low Complexity [address] Limited Diagnoses including with alloimmunization. Limited Data including review of prior ultrasound and review of priorexternal notes Minimal risk of morbidity or mortality to the fetus from additionaltesting. Services Provided: ProceduresCode FOLLOW UP [id number] us Danita FIELDS US Final R esult * ANTIBODY TITER CHARGE (01/26/2025 2:45 PM CDT) Only the most recent of2 resultswithin the time period is included. QUANTITY 1 [facility] ANTIBODY TITER CHARGE Antibody Titer Charge [facility] Danita FIELDS BLOOD BANK Final R esult Performing Organization Address City/[facility] Co de Phone Number [facility] [address] [place] [phone], * (ABNORMAL) ANTIBODY TITER (01/26/2025 2:45 PM CDT) Only the most recent of2 resultswithin the time period is included. Pathologist [facility] [place] ANTIBODY IDENTIFICATION Anti-Arias a(A) 01/27/2025 12:47 PM CDT [facility] ANTIBODY TITER 1:2(A) 01/27/2025 12:47 PM CDT [facility] Blood BLOOD SPECIMEN / Unknown [facility] Collect / Unknown 01/26/2025 2:45 PM CDT 01/26/2025 2:45 PM CDT Narrative [facility] - 01/27/2025 12:47 PM CDT Antibody may cause Hemolytic Disease of the Fetus and [place]. Consider perinatology consult. Danita FIELDS BLOOD BANK Final R esult Performing Organization Address City/[facility]/ZIP Co de Phone Number [facility] [address] [place] [address], [place] [phone] * (ABNORMAL) ANTIBODY IDENTIFICATION LAB USE ONLY (01/26/2025 2:45 PM CDT) [facility] ANTIBODY IDENTIFICATION Anti-Arias a, Non-speci fic(A) 01/27/2025 12:07 PM CDT [facility] Blood BLOOD SPECIMEN / Unknown [facility] Collect / Unknown 01/26/2025 2:45 PM CDT 01/26/2025 2:45 PM CDT Narrative [facility] - 01/27/2025 12:07 PM CDT Blood products may be delayed. Draw patient 24 hours prior to transfusion. Draw one red top and two purple top tubes for all Type and Screen orders. This patient's serological work-up may have included protocols and/or reagents that have not been cleared or approved by the U.S. Food and Drug Administration. If specific information is required, please contact the performing laboratory us Danita FIELDS BLOOD BANK Final R esult [facility] [address] [place] [phone], * ANTIBODY IDENTIFICATION EACH PANEL (01/26/2025 2:45 PM CDT) Only the most recent of2 resultswithin the time period is included. [facility] 1 [facility] PANEL CECILIA ID Panel Antibody ID [facility] Danita FIELDS BLOOD BANK Final R esult [facility] [address] [place] [phone], * PANEL-ABBREVIATED (01/26/2025 2:45 PM CDT) [facility] 1 [facility] PANEL ABBREVIATED Panel Abbreviated [facility] Danita FIELDS BLOOD BANK Final R esult [facility] [address] [place] [address], [place] [phone] * VAGINAL/RECTAL OB STREP PCR (01/20/2025 8:20 AM SHIFT STACKER) Vaginal/Rectal OB Strep B PCR Negative 01/22/2025 10:00 AM SHIFT STACKER [facility] Other (Vaginal/Rectal) Non-Blood / Unknown 01/20/2025 8:20 AM SHIFT STACKER 01/20/2025 8:47 AM SHIFT STACKER Danita FIELDS MICROBIOLOGY Final R esult Performing Organization Address [facility]/ZIP Co de Phone Number [facility] [address] [place] [address], [place] * ZIO PATCH XT - weekly to monthly symptoms. (01/13/2025) Daniella Barrera MD CARDIAC SERVICES ORD Fi nal Result * TSH WITH REFLEX (12/22/2024 11:08 AM SHIFT STACKER) TSH W/REFLEX TO FT4 0.77 mIU/L [facility] [place] Comment: Reference Range > or = 20 Years 0.40-4.50 Ranges First trimester 0.26-2.66 Second trimester 0.55-2.73 Third trimester 0.43-2.91 Blood BLOOD SPECIMEN / Unknown 12/22/2024 11:08 AM SHIFT STACKER 12/22/2024 11:09 AM SHIFT STACKER Daniella Barrera MD CHEMISTRY Final R esult [facility] [employer] [address] [address], [place] [phone] [facility] [address] [place] [address] * (ABNORMAL) CBC AND DIFFERENTIAL (12/22/2024 11:08 AM SHIFT STACKER) Pathologist [facility] [place] WHITE BLOOD CELL COUNT 7.2 3.8 - 10.8 Thousand/u L [facility] RED BLOOD CELL COUNT 3.75(L) 3.80 - 5.10 Million/uL [facility] HEMOGLOBIN 10.5(L) 11.7 - 15.5 g/dL [facility] HEMATOCRIT 32.2(L) 35.0 - 45.0 % [facility] MCV 85.9 80.0 - 100.0 fL [facility] MCH 28.0 27.0 - 33.0 pg [facility] MCHC 32.6 32.0 - 36.0 g/dL [facility] Comment: For adults, a slight decrease in the calculated MCHC value (in the range of 30 to 32 g/dL) is most likely not clinically significant; however, it should be interpreted with caution in correlation with other red cell parameters and the patient's clinical condition. RDW 12.3 11.0 - 15.0 % [facility] PLATELET COUNT 217 140 - 400 Thousand/u L [facility] MPV 11.0 7.5 - 12.5 fL [facility] ABSOLUTE NEUTROPHILS 5,112 1,500 - 7,800 cells/uL [facility] ABSOLUTE LYMPHOCYTES 1,433 850 - 3,900 cells/uL [facility] ABSOLUTE MONOCYTES 504 200 - 950 cells/uL [facility] ABSOLUTE EOSINOPHILS 130 15 - 500 cells/uL [facility] ABSOLUTE BASOPHILS 22 0 - 200 cells/uL [facility] NEUTROPHILS 71 % [facility] LYMPHOCYTES 19.9 % [facility] MONOCYTES 7.0 % [facility] EOSINOPHILS 1.8 % [facility] BASOPHILS 0.3 % [facility] Blood BLOOD SPECIMEN / Unknown 12/22/2024 11:08 AM SHIFT STACKER 12/22/2024 11:09 AM SHIFT STACKER Daniella Barrera MD HEMATOLOGY Final R esult Performing Organization Address City/[facility]/ZIP Co de Phone Number [employer] [facility] [address] [place] [address], [facility] [address] [place] [address] * EKG 12 LEAD (12/22/2024 12:00 AM SHIFT STACKER) Daniella Barrera MD EKG ORD Final R esult * ANTI HCV (07/25/2024 2:40 PM CDT) Pathologist [facility] [place] HEPATITIS C ANTIBODY Non-Reacti ve Non-React fredrick 07/25/2024 11:32 PM CDT [facility] Comment:Please note, per www .CDC.gov: If a patient is known to be at high risk of HCV infection, or is symptomatic, and the physician's suspicion of HCV infection is high, HCV RNA testing is often employed and is of diagnostic value, even after an initial negative anti-HCV test result. Blood BLOOD SPECIMEN / Unknown Venipuncture / Unknown 07/25/2024 2:40 PM CDT 07/25/2024 2:42 PM CDT Blanche Brown MD SEND OUTS Final Result Performing Organization Address City/[facility]/ZIP Co de Phone Number [facility] [address] [place] [address], * ANTI HIV 1/2 (07/25/2024 2:40 PM CDT) Pathologist [facility] [place] HIV-1/HIV-2 SCREEN Non-Reacti ve Non-Reacti ve 07/25/2024 11:27 PM CDT [facility] Comment:HIV-1 p24 and HIV-1/ HIV-2 Ab Not Detected. Blood BLOOD SPECIMEN / Unknown Venipuncture / Unknown 07/25/2024 2:40 PM CDT 07/25/2024 2:42 PM CDT Blanche Brown MD SEND OUTS Final Result Performing Organization Address [facility] Co de Phone Number [facility] [address] * HPV HIGH RISK (07/25/2024 2:20 PM CDT) TYPE 16 Negative Negative 07/31/2024 8:21 AM CDT [facility] TYPE 18 Negative Negative 07/31/2024 8:21 AM CDT [facility] OTHER HIGH RISK TYPES Negative Negative 07/31/2024 8:21 AM CDT [facility] Other (Cervical) Non-Blood / Unknown 07/25/2024 2:20 PM CDT 07/28/2024 1:22 PM CDT Narrative [facility] - 07/31/2024 8:21 AM CDT HPV types 16, 18, 31, 33, 35, 39, 45, 51, 52, 56, 58, 59, 66 and 68 DNA were undetectable or below the pre-set threshold. Methodology: Kerwin Gisella 4800 HPV Test Blanche Brown MD MICROBIOLOGY Final Result Performing Organization Address [facility] de Phone Number [facility] [address] from Last 3 Months or Most Recently Relevant to Health Maintenance Insurance [facility] NON-IN-ITS Advance Directives * Full Code (Latest Code Status on File) Date Activated Date Inactivated Comments 02/18/2025 11:55 PM 02/21/2025 11:27 AM Question Answer Comments Code Status Discussion: Other * Full Code Date Activated Date Inactivated Comments 02/07/2025 11:39 PM 02/11/2025 4:06 PM Question Answer Comments Code Status Discussion: Other * Full Code Date Activated Date Inactivated Comments 01/29/2022 7:47 AM 01/31/2022 12:42 PM Question Answer Comments Code Status Discussion: Unable to Assess Preferences, Provider to review later * Full Code Date Activated Date Inactivated Comments 03/09/2020 8:11 AM 03/10/2020 8:34 PM Care Teams Natural Sciences Department Chair Relationship Specialty Start Date End Date Pcp, No . PCP - General 09/02/19 Shruthi José PA [address] [facility] [address] [place] [address] Physician Printing Table Hand 07/30/24 Emperatriz Garcia MD [address] [place] [address] Obstetrics and Gynecology 08/27/24 Danita Quinones PA [address] [place] [id number] Physician Printing Table Hand 01/20/25
[2025-02-26 02:10] VITALS: BP 146/96; PULSE 64; RESP 16; O2SAT 98; BMI 24.1
[2025-02-26 02:30] VITALS: BP 144/98; PULSE 69; RESP 16; O2SAT 97
[2025-02-26 02:42] LABS: Basophils Absolute Auto 0.04 K/uL (0.00-0.30); Basophils Percent Auto 0.8 % (0.0-3.0); Hematocrit 39.3 % (33.0-51.0); Hemoglobin* 12.4 gm/dL (12.0-16.0); Lymphocytes Absolute Auto 1.79 K/uL (0.90-2.90); Lymphocytes Percent Auto 35.9 % (20-44); Mean Corpuscular HGB Conc 32 gm/dL (32-36); Mean Corpuscular Hemoglobin 27 pg (26-34); Mean Corpuscular Volume 85 fL (80-100); Neutrophils Absolute Auto 2.51 K/uL (1.7-7.0); Neutrophils Percent Auto 50.3 % (42.0-72.0); Platelet Count* 203 K/uL (140-440); RDW Coefficient of Variation % 14.1 % (11.5-15.5); Red Blood Count 4.62 m/uL (4.00-5.20); White Blood Count* 4.99 K/uL (4.50-11.00)
--- OUTSIDE RECORDS SUMMARY | 2025-02-26 02:44 | XMS_ITS | Clinical Summary ---
Author Organization [facility] Address [address] [place] [address] Care Team Providers Care Exerciser Horse Name Role Phone Pcp, No Primary Care Provider Unavailabl e Shruthi José Unavailable [phone] Emperatriz Garcia MD Unavailable Danita Quinones Unavailable [phone] Allergies Active Allergy Reactions Criticality Noted Date Comments Blood-Group Specific Substance Other - Describe In Comment Field 07/25/2024 Patient has anti-Jka (Arias A), anti-Fyb (Lea B), and a Nonspecific (antibodies). Blood products may be delayed. Draw patient 24 hours prior to transfusion. For Closetbox testing, draw one red top and two purple top tubes for all type and screen orders. Egg Derived Hives 06/04/2015 Childhood reaction in past. Can tolerate eggs but avoids them. Medications Ohocesio-Pu-Xil- Fe-FA tab tablet Take 1 tablet by [...] 07/2024 NIL/HPV negative. Plan: Pap/HPV due 07/2029 [facility] Supervision of high-risk Overview (01/20/2025): Erin Martinez : 1990 MPP ULTRASOUND/TESTING PATIENT MPP CONSULT ON REFERRING PROVIDER/CLINIC LOCATION/FAX #: Exerciser Horse Role and Specialty Contact Info Address Start End Comments Shruthi José PA (Physician [employer] Gauger) [facility] [address] [address] 07/30/2024 - - Primary provider approves scheduling of recommended ultrasounds/testing: Yes Support person name: Project Management Advisor: No /ULTRASOUND TYPE: 01/27/25: f/u growth REASON [...] vaccine: Declined Peds: Dr. Hallman - [facility] Partners name: Marcel OB History Para Term [...] of intake: 8.0 weeks Patient preferred name: [employer] Hx: Hx Anti-Arias a antibody, Hx PCOS [...] Pertussis Vaccine: 12/29/2019 Peds: Dr. Hallman at [facility] Domestic violence screen: Denies Partners name (if applicable): Marcel Iban [facility] Consult 09/10/2019 07/30/2024 Overview (09/10/2019): [facility] CONSULTATION ON 09/15/2019 REASON FOR CONSULT: Anti-Arias antibody titer<1:1, risks/management TODAY'S APPOINTMENT: MD Consultation PRIMARY DIAGNOSIS: 29 y.o. 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 Yes Normal? Yes, except antibody titer O Positive, antibody Positive - anti-Arias <1:1 PERTINENT MEDS: Preferred delivery location: [facility] PLAN OF CARE: Encounter for supervision of other normal , unspecified trimester 08/13/2019 024 Overview (09/05/2019): 29 y.o. H/O vag delivery X 3 Anti-arias antibody. Genetic testing: declines History PPH with second baby (after a rapid delivery in the ED) BMI:20.22 25-35# Recommended wt gain Peds: Dr Hallman at [facility] FOB: involved, Marcel OB History Para Term [...] Type Department Care Team Description 02/26/[address] [address] Patsy Granados DO 02/26/2025 Nurse Triage [facility] [address] [place] [address] Carolina Marsh NP High Blood Pressure (Post- ) 02/22/2025 Telephone [facility] [address] [place] [phone] [facility] 02/19/2025 Travel 02/18/2025 10:25 PM CDT - 02/21/2025 9:15 AM CDT Hospital Encounter [address] [address] Emperatriz Garcia MD Pre-eclampsia, (HC) (Primary Dx); Vaginal delivery (HC) Discharge Disposition: Home Self Care 02/16/2025 Travel 02/13/2025 10:00 AM CDT Office Visit [facility] [address] [place] [address] [place] [address] Danita Quinones PA Utility Bill Complaints Investigator Exam (still feels uncontrolled/talk about trajectory) 02/12/2025 Travel 02/11/2025 11:59 PM CDT - 02/12/2025 2:31 AM CDT Hospital Encounter [address] [address] Yoana Bliss MD Discharge Disposition: Home Self Care 02/11/[address] [address] Patsy Granados DO Hypertension 02/11/2025 Travel 02/11/2025 Telephone [facility] [place] [address] [facility] [address] [place] [address] [facility] ([facility] CALL) 02/08/2025 10:47 AM CDT Anesthesia Event [address] [address] Brian Day MD 02/07/2025 7:21 PM CDT - 02/11/2025 1:50 PM CDT Hospital Encounter [address] [address] Emperatriz Garcia MD Flikkema, Kaitlynn Rose, DO Vaginal delivery (HC) (Primary Dx); AMA (advanced maternal age) multigravida 35+, third trimester (HC); Hypertension affecting in third trimester (HC); hypertension (HC); Elevated brain natriuretic peptide (BNP) level; Disorder of (HC) Discharge Disposition: Home Self Care 02/07/2025 Travel 02/05/2025 Telephone [facility] [address] [facility] [address] [place] [phone] Patsy Granados DO 02/04/2025 Telephone [facility] [address] [facility] [address] [place] [phone] Patsy Granados DO 02/03/2025 8:20 AM CDT OB Encounter [facility] [address] [facility] [address] [place] [address] Patsy Granados DO Care (38w3d [place] 02/14/2025) 02/02/2025 Travel 01/27/2025 12:40 PM CDT - 01/27/2025 11:59 PM CDT Hospital Encounter [facility] [address] [place], [place] [phone] Danita Quinones PA Supervision of high risk in third trimester (HC) (Primary Dx); Abnormal antibody titer; AMA (advanced maternal age) multigravida 35+, second trimester (HC); High-risk in third trimester (HC) 01/26/2025 2:45 PM CDT Orders Only [facility] [address] [address] [address] Lab, Suzette Lab 01/26/2025 8:00 AM CDT OB Encounter [facility] [address] [facility] [address] [place] [phone] Carolina Marsh NP Care (37 weeks 2 days [place] 02-14-25 ) 01/26/2025 Travel 01/22/2025 Travel 01/20/2025 8:00 AM IT ARCHITECT OB Encounter [facility] [address] [facility] [address] [place] [phone] Danita Quinones PA Care (36+3 [place] 02/14/25) 01/20/2025 Transcribe Orders [facility] [address] [facility] [address] [place] [address] Danita Quinones PA 01/20/2025 Travel 01/19/2025 3:00 PM IT ARCHITECT Office Visit [address] [place] [address] Julio C Enrique MD Consult (New patient consult, , ZIO PATCH DONE 01/13/25, DX: Palpitations, Paroxysmal SVT (supraventricular tachycardia) (HC) / Referred by Daniella Barrera//pt states she feels good. No current cardiac sx. Had some PVCs earlier. Knows they are pvcs and feels them.) 01/18/2025 Travel 01/16/2025 Telephone [facility] [address] [facility] [address] [place] [phone] Blanche Brown MD 01/14/2025 Travel 01/12/2025 Orders Only [facility] [address] [place] [address] Ana Pace 2 scans: (2-Ord) FINAL REPORT DOS 12/22/24 01/08/2025 Telephone [facility] [address] [facility] [address] [place] [phone] Patsy Granados DO Reschedule 01/05/2025 8:00 AM IT ARCHITECT OB Encounter [facility] [address] [facility] [address] [place] [address] Carolina Marsh NP Care (34 weeks 2 days [place] 02-14-25 ) 01/05/2025 Travel 12/22/2024 10:20 AM IT ARCHITECT Office Visit [facility] [address] [place] [address] Daniella Barrera MD Palpitations (Irregular heart beat, feels like a jolt x 2 months ) 12/22/2024 8:00 AM IT ARCHITECT OB Encounter [facility] [address] [facility] [address] [facility] [address] [place] [phone] Blanche Brown MD Care ([place] 02/14/25 [place] 32w2d) 12/22/2024 Orders Only [facility] [address] [place] [address] Daniella Barrera MD 1 scan: (1-Ord) 12/22/2024 12/22/2024 Travel 12/17/2024 Travel 12/08/2024 1:30 PM IT ARCHITECT OB Encounter [facility] [address] [facility] [address] [place] [phone] Carolina Marsh NP Care (30 weeks 2 [...] on file Legal Sex Female 1:03 PM IT ARCHITECT Gender Identity Not on file Sexual Orientation [...] N Livin g Timot hy Complications:None Delivery Location:[facility] Comments:HTN in labor; oligohydramnios 40w5d week induction 2014 Term 41w 0d 0h 23m 0h 23m 3.48 kg (7 lb 10.8 oz) M Vag-Sp ont None,L ocal N Livin g 8 9 Lucian Dubose Complications:Other Excessiv e Bleeding,Precipitous labor (< 3 hours) Delivery Location:[facility] Comments:50 min labor with PPH (delivered in ED) 2016 Term 41w 1d 0h 02m 0h 02m 3.7 kg (8 lb 2.5 oz) M Vag-Sp ont None N Livin g 8 9 Carlo Chacon ield Dalto n DO Complications:None Delivery Location:[facility] 2019 Term 38w 2d 0h 09m 3.12 kg (6 lb 14.1 oz) M VAGINA L MACI None N Livin g [address] Kisha cannon and Peopl es Complications:None Delivery Location:[facility] (UTD 2000 MB L&D TRIAGE) Comments:increased ant ibody titer 2021 Term 39w 3d 9h 16m 9h 03m/0h 07m/0h 06m 3.9 kg (8 lb 9.6 oz) F VAGINA L MACI Epidur al Livin g 8 9 Beatris mac, Qian yanez MD Complications:None Delivery Location:[facility] ( [facility] 1999 MB L&D TRIAGE) 2024 Term 39w 1d 0h 07m 0h 07m 3.51 kg (7 lb 11.8 oz) F VAGINA L MACI Epidur al Livin g 8 8 Isabel Reyes [facility] Yoana Galvez MD Complications:None Delivery Location:Hospital ( [facility] 1999 MB L&D TRIAGE) Summary Episode Dates [...] and coordination of care. Brenda Renuka Brenda, FISH PEDDLER .................... 02/21/2025 7:52 AM 02/21/2025 - 39w1d [...] clonus present, normal reflexes and strong hand billboard poster helper noted. Patient will call with concerns. 02/20/2025 [...] Intake/Output Summary (Last 24 hours) at 02/19/2025 0984 Last data filed at 02/19/2025 0848 Gross [...] 2227 patient presents ambulatory from home to [facility] for evaluation of headache and elevated blood [...] 2359 patient presents ambulatory from home to [facility] for evaluation of elevated BP at home. Accompanied by partner and child. Patient reports checking BP prior to 2200 scheduled labetalol 400 mg dose and BP's were 142/87 and 144/96. Pt called packer operator automatic and was instructed to increase labetalol to [...] via Wheelchair accompanied by RN and nursing director. 02/11/2025 - 39w1d - Екатерина Ovalle RN [...] to call for. Patient was referred to [facility] for blood pressure check in 1-3 [...] 02/10/2025 - 39w1d Suzanne Gamino L Ac [facility] Acupuncture Consult Note Please refer to T herapeutic Session/[facility] Therapeutic Session Doc Flowsheet for detailed data [...] 39w1d - Esteban torres, DONNIE Salazar SUBJECTIVE Eirn Martinez is a 34 y.o. female with [...] 02/08/2025 - 39w1d - Eliane Bliss MD [facility] PROGRESS NOTE Erin is comfortable with her epidural. Cervix: 5/80-2; AROM with small amount of clear fluid. FHT Cat 1. Continue to monitor. Yoana Bliss MD .................... 02/08/2025 12:00 PM 02/08/2025 - 39w1d - Eliane Bliss MD [facility] PROGRESS NOTE Assuming care for Erin Martinez. [...] per protocol, see doc flow sheet This conventional mortgage underwriter remains at bedside with pt per protocol. Repositioned R lateral at 1105. See JAN. 1200- Dr. Bliss at bedside. AROM by MD for scant amount of clear fluid 1345- conventional mortgage underwriter went into room d/t decelerations. IV fluids [...] of SVT but burden so low that decorator hand did not recommend any treatment or medication. [...] well as Hgb, no lab draw in [place] today, will make lab appt [facility] had recommended a f/u growth scan 8 [...] out. DONNIE Recinos .................... 01/20/2025 8:33 AM ARCHITECT Progress Notes - OB Encounte r - [...] Carolina Marsh NP .................... 01/05/2025 8:20 AM ARCHITECT Progress Notes - OB Encounte r - [...] Patient does not have primary. Lives near [place] Chest: clear to auscultation CV : regular rate and rhythm PLAN: To Primary care for evaluation Consider EKG, Holter monitor. Check antibody titer today Return to clinic in 2 wks Blanche Brown MD ARCHITECT Progress Notes - OB Encounte r - [...] Carolina Marsh NP .................... 12/08/2024 1:56 PM ARCHITECT ARCHITECT Progress Notes - OB Encounte r - 11/26/2024 - GA:28w4d 11/26/2024 - 28w4d - Blanche Brown MD Positive movement Some discomfort on right pelvis. No contractions Getting TDAP today. PLAN: Return to clinic in 2 wks Blanche Brown MD ARCHITECT Progress Notes - Hospital En counter - 11/25/2024 - GA:28w3d 11/25/2024 - 28w3d - Elijah Jarvis MBBS MPP Ultrasound Visit Your patient had an ultrasound with [facility] on 11/25/2024. The report is ready and can be found in the Results review section of the [facility] chart. Recommendations regarding further care are listed [...] as needed. Medical Decision Making: Low Complexity [address] Limited Diagnoses including with Positive Anti-Arias antibodies [...] Services Provided: Procedures Code FOLLOW UP GROWTH 81341.0 ARCHITECT Progress Notes - OB Encounte r - 11/07/2024 - GA:25w6d 11/07/2024 - wd - Blanche Brown MD Positive movement No contractions Anti arias antibody. Getting follow up every 4 weeks > now ordered out to the end No problems. PLAN: Follow up for 28 week labs. Blanche Brown MD ARCHITECT Progress Notes - OB Encounte r - [...] as well. Patient location (originating site city/state): [place] Provider location (distant site city/state): [place] Telephone start time (include am/pm designation): 11:15 AM Telephone end time (include am/pm designation): 11:30 AM Total time preparing to see this patient, pnnt-cl-uktg time, and coordinating care time on the [...] series ( season) Never done Rosemary. R, CFO CONTROLLER....... 10/02/2024 11:20 AM Subjective SUBJECTIVE: HPI Erin [...] movements in 2 hours, call the office [phone]. Diet During It s important to eat [...] you eat them. Cook leftover foods or qzasf-mr-oug foods, such as hot dogs, until they [...] Your provider may refer you to a barrel lapper. If you need financial help buying healthy [...] 11:00 AM Emperatriz Garcia MD PKVEOB PKVE ARCHITECT ARCHITECT Progress Notes - Hospital En counter - 09/30/2024 - GA:20w3d 09/30/2024 - 3d - Radha Linares RN [place] [facility] Consultation Visit Patient here for consultation [...] corresponding sections of the history section of [facility] chart and the [facility] Navigator for details. Assessment: Patient's perception of movement: Present. Normal movement discussed. A formal ultrasound was done at today's visit-see report. Preferred delivery location: [facility] Education Some basic routine education done during assessment. See patient education section for details. Patient states that all her questions were answered. Scheduled to see Dr Castillo today. After Visit Summary created, discussed and supplied to patient? Yes Is referring provider within [facility]? 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 We also discussed testing [...] as well. Patient Location (originating site [facility] [place], [place] Provider Location (distant site city/state): [place], [place] Video start time (include am/pm designation): 3:15 PM Video end time (include am/pm designation): 3:50 PM Patient had phone ob visit so no vital signs or in person height or weight obtained. Patient will receive educational hard copies of materials at her IOB. Material was sent via the patient's [employer] account. Patient will call and schedule her dating US. IOB and 16 week appointments scheduled. Patient to see Dr. Blanche Brown at 10.6 wks gestation. Daytime Ph#: [phone] UT for detailed msg: Yes * US: Scheduled [...] Description 02/26/2025 1:00 PM CDT Office Visit [facility] [address] [address] [place] [address] [place] [address] 04/16/2025 8:20 AM CDT Office Visit [facility] [address] [facility] [address] [place] [phone] Blanche Brown MD [address] [facility] [address] [place] [address] 04/28/2025 8:00 AM CDT Office Visit [facility] [address] [place] [phone] Eun Gutierrez MD [address] [place] [address] Health Maintenance Due Date Last Done Comments [...] OB STREP PCR Routine 01/20/2025 8:20 AM IT ARCHITECT Supervision of other normal , antepartum (HC) EXTENDED HOLTER Routine 01/13/2025 Palpitations COMP METABOLIC PANEL Routine 12/22/2024 11:08 AM IT ARCHITECT Palpitations CBC WITH AUTO DIFFERENTIAL Routine 12/22/2024 11:08 AM IT ARCHITECT Palpitations TSH WITH REFLEX Routine 12/22/2024 11:08 AM IT ARCHITECT Palpitations ANTIBODY TITER Routine 12/22/2024 8:42 AM IT ARCHITECT Abnormal antibody titer ANTIBODY TITER CHARGE Routine 12/22/2024 8:40 AM IT ARCHITECT ANTIBODY IDENTIFICATION EACH PANEL Routine 12/22/2024 8:40 AM IT ARCHITECT EKG 12 LEAD Routine 12/22/2024 12:00 AM IT ARCHITECT Palpitations ANTI HIV 1/2 Routine 07/25/2024 2:40 [...] 11.0 thou/cu mm 02/19/2025 8:00 AM CDT [facility] RED BLOOD COUNT 5.05 4.00 - 5.20 mil/cu mm 02/19/2025 8:00 AM CDT [facility] HEMOGLOBIN 13.9 12.0 - 16.0 g/dL 02/19/2025 8:00 AM CDT [facility] HEMATOCRIT 42.0 33.0 - 51.0 % 02/19/2025 8:00 AM CDT [facility] MCV 83 80 - 100 fL 02/19/2025 8:00 AM CDT [facility] MCH 27.5 26.0 - 34.0 pg 02/19/2025 8:00 AM CDT [facility] MCHC 33.1 32.0 - 36.0 g/dL 02/19/2025 8:00 AM CDT [facility] RDW 14.2 11.5 - 15.5 % 02/19/2025 8:00 AM CDT [facility] PLATELET COUNT 263 140 - 440 thou/cu mm 02/19/2025 8:00 AM CDT [facility] MPV 10.1 6.5 - 11.0 fL 02/19/2025 8:00 AM CDT [facility] NRBC 0.0 % 02/19/2025 8:00 AM CDT [facility] ABS NRBC 0.0 thou /cu mm 02/19/2025 8:00 AM CDT [facility] Blood BLOOD SPECIMEN / Unknown Venipuncture / Unknown 02/19/2025 7:45 AM CDT 02/19/2025 7:53 AM CDT us Ayesha Lyle MD HEMATOLOGY Final Result [facility] SENDOUT INTERNAL ZIP [phone] [place] [id number] * (ABNORMAL) Magnesium PRN (02/19/2025 7:45 AM CDT) MAGNESIUM 5.5(H) 1.6 - 2.6 mg/dL 02/19/2025 8:37 AM CDT [facility] Blood BLOOD SPECIMEN / Unknown Venipuncture / Unknown 02/19/2025 7:45 AM CDT 02/19/2025 7:53 AM CDT us Ayesha Lyle MD CHEMISTRY Final Result [facility] SENDOUT INTERNAL ZIP [id number] [place] [address] * (ABNORMAL) COMP METABOLIC PANEL (02/19/2025 7:45 AM CDT) Only the most recent of7 resultswithin the time period is included. SODIUM 135(L) 136 - 145 mmol/L 02/19/2025 8:25 AM [facility] POTASSIUM 3.9 3.5 - 5.1 mmol/L 02/19/2025 8:25 AM [facility] CHLORIDE 100 98 - 107 mmol/L 02/19/2025 8:25 AM [facility] CO2,TOTAL 23 22 - 29 mmol/L 02/19/2025 8:25 AM [facility] ANION GAP 12 5 - 18 02/19/2025 8:25 AM [facility] GLUCOSE 97 70 - 99 mg/dL 02/19/2025 8:25 AM [facility] CALCIUM 7.6(L) 8.8 - 10.4 mg/dL 02/19/2025 8:25 AM [facility] Comment: Reference ranges for this test were updated on 09/23/2024 to reflect our healthy population more accurately. Reference range changes are not retroactively applied to results, but previous results using the same methodology can be interpreted in the context of the new reference range. BUN 13 6 - 20 mg/dL 02/19/2025 8:25 AM [facility] CREATININE 0.68 0.50 - 0.90 mg/dL 02/19/2025 8:25 AM [facility] BUN/CREAT RATIO 19 10 - 20 8:25 AM [facility] eGFR >90 >90 mL/min/1. 73m2 02/19/2025 8:25 AM [facility] Comment:As of 2022, eG FR is calculated by the CKD-EPI creatinine equation without race adjustment. eGFR can be influenced by muscle mass, exercise, and diet. The reported eGFR is an estimation only and is only applicable if the renal function is stable. ALBUMIN 4.1 4.0 - 4.9 g/dL 02/19/2025 8:25 AM [facility] PROTEIN,TOTAL 7.6 6.0 - 8.0 g/dL 02/19/2025 8:25 AM [facility] BILIRUBIN,TOTAL 0.3 0.0 - 1.2 mg/dL 02/19/2025 8:25 AM [facility] ALK PHOSPHATASE 181(H) 35 - 104 IU/L 02/19/2025 8:25 AM CDT [facility] ALT (SGPT) 17 10 - 35 IU/L 02/19/2025 8:25 AM CDT [facility] AST (SGOT) 20 10 - 35 IU/L 02/19/2025 8:25 AM CDT [facility] Blood BLOOD SPECIMEN / Unknown Venipuncture / Unknown 02/19/2025 7:45 AM CDT 02/19/2025 7:53 AM CDT Ayesha Lyle MD CHEMISTRY Final Result Performing Organization Address City/[facility]/ZIP Co de Phone Number [facility] SENDOUT INTERNAL ZIP [id number] [place] [id number] * PROTEIN/CREAT RATIO,URINE (02/18/2025 11:13 PM CDT) Only the most recent of2 resultswithin the time period is included. PROTEIN QUANT,RAND URINE 6 1 - 14 mg/dL 02/18/2025 11:40 PM CDT [facility] CREAT,RANDOM URINE 57.5 28.0 - 217.0 mg/dL 02/18/2025 11:40 PM CDT [facility] PROT/CREAT RATIO,UR 0.1 <0.2 02/18/2025 11:40 PM CDT [facility] Urine URINE SPECIMEN / Unknown Non-Blood / Unknown 02/18/2025 11:13 PM CDT 02/18/2025 11:19 PM CDT Ayesha Lyle MD URINE Final Result [facility] SENDOUT INTERNAL ZIP [phone] [place] [id number] * PRO-BNP (02/18/2025 11:00 PM CDT) Only the most recent of3 resultswithin the time period is included. PRO-BNP 44 <125 pg/mL 02/18/2025 11:36 PM CDT [facility] Blood BLOOD SPECIMEN / Unknown Non-Lab Venipuncture / Unknown 02/18/2025 11:00 PM CDT 02/18/2025 11:08 PM CDT Narrative [facility] - 02/18/2025 11:36 PM CDT The [...] SEND OUTS Final Result Performing Organization Address City/[facility]/ZIP Co de Phone Number [facility] SENDOUT INTERNAL ZIP [phone] [place] [address] * PLATELET COUNT (02/10/2025 11:35 AM CDT) Pathologist [facility] PLATELET COUNT 204 140 - 440 thou/cu mm 02/10/2025 11:44 AM CDT [facility] MPV 10.7 6.5 - 11.0 fL 02/10/2025 11:44 AM CDT [facility] Blood BLOOD SPECIMEN / Unknown Venipuncture / Unknown 02/10/2025 11:35 AM CDT 02/10/2025 11:37 AM CDT Iris Power PA HEMATOLOGY Final Result [facility] SENDOUT INTERNAL ZIP [phone] [place] [address] * (ABNORMAL) HEMOGLOBIN (02/10/2025 11:35 AM CDT) Only the most recent of2 resultswithin the time period is included. HEMOGLOBIN 11.1(L) 12.0 - 16.0 g/dL 02/10/2025 11:44 AM CDT [facility] MCV 84 80 - 100 fL 02/10/2025 11:44 AM CDT [facility] Blood BLOOD SPECIMEN / Unknown Venipuncture / Unknown 02/10/2025 11:35 AM CDT 02/10/2025 11:37 AM CDT Iris FIELDS HEMATOLOGY Final Result [facility] SENDOUT INTERNAL ZIP [phone] [place] [address] * HCHG KIT EPIDURAL PR10, HCHG DRSG PR1, EPIDURAL BLOCK, HCHG LABOR EPIDURAL INITIAL, HCHG TUBING PR5(02/08/2025 10:47 AM CDT) Narrative Brian aDy MD - 02/08/2025 10:47 AM CDT Brian [...] resultswithin the time period is included. Pathologist [facility] CROSSMATCH Compatible Compatible [facility] BLOOD BANK PRODUCT BLOOD TYPE O Rh Positive [facility] BLOOD BANK PRODUCT ID NUMBER [id number] [facility] BLOOD BANK PRODUCT STATUS /Relea sed [facility] BLOOD B[facility] PRODUCT DESCRIPTION RBC -1 LR Pt2 [facility] BLOOD BANK PRODUCT CODE [id number] [facility] BLOOD BANK Sarah Grove MD BLOOD BANK Edit ed Result - Final Performing Organization Address City/[facility]/ZIP Co de Phone Number [facility] BLOOD BANK [address] [place] [address] * TREPONEMA PALLIDUM (02/07/2025 9:06 PM CDT) Pathologist [facility] TREPONEMA PALLIDUM Non-Reacti ve Non-Reacti ve 02/08/2025 1:42 AM CDT [facility] TRAL LABORATORY Blood BLOOD SPECIMEN / Unknown Non-Lab Venipuncture / Unknown 02/07/2025 9:06 PM CDT 02/07/2025 9:12 PM CDT Sarah Grove MD SEND OUTS Parisa l Result [facility] [address] [place] [address], * (ABNORMAL) TYPE & SCREEN (02/07/2025 9:06 PM CDT) Pathologist [facility] ABORH O Rh Positive 02/07/2025 10:50 PM CDT [facility] BLOOD BANK ANTIBODY SCREEN Positive(A) Negative 02/07/2025 10:50 PM CDT [facility] BLOOD BANK SPECIMEN EXPIRATION DATE/TIME 02/10/25 23:59 02/07/2025 10:50 PM CDT [facility] BLO[facility] Blood BLOOD SPECIMEN / Unknown Non-Lab Venipuncture / Unknown 02/07/2025 9:06 PM CDT 02/07/2025 9:12 PM CDT Sarah Grove MD BLOOD BANK Parisa farmer Result [facility] BLOOD BANK [address] [place] [address] * US OB FOLLOW UP ANY TRI [...] as needed. Medical Decision Making: Low Complexity [address] Limited Diagnoses including with alloimmunization. Limited Data including review of prior ultrasound and review of prior external notes Minimal risk of morbidity or mortality to the fetus from additional testing. 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 Medical Decision Making: Low Complexity 50416 Limited Diagnoses including with alloimmunization. Limited Data including review of prior ultrasound and review of priorexternal notes Minimal risk of morbidity or mortality to the fetus from additionaltesting. Services Provided: ProceduresCode FOLLOW UP [id number] us Danita FIELDS US Final R esult * ANTIBODY TITER CHARGE (01/26/2025 2:45 PM CDT) Only the most recent of2 resultswithin the time period is included. QUANTITY 1 [facility] LAB BLOOD BANK ANTIBODY TITER CHARGE Antibody Titer Charge [facility] Danita FIELDS BLOOD BANK Final R esult Performing Organization Address City/[facility] Co de Phone Number [facility] [address] [place] [address], * (ABNORMAL) ANTIBODY TITER (01/26/2025 2:45 PM CDT) Only the most recent of2 resultswithin the time period is included. Pathologist [facility] ANTIBODY IDENTIFICATION Anti-Arias a(A) 01/27/2025 12:47 PM CDT [facility] BLOOD BANK ANTIBODY TITER 1:2(A) 01/27/2025 12:47 PM CDT [facility] Blood BLOOD SPECIMEN / Unknown [facility] / Unknown 01/26/2025 2:45 PM CDT 01/26/2025 2:45 PM CDT Narrative [facility] - 01/27/2025 12:47 PM CDT Antibody may cause Hemolytic Disease of the Fetus and Gary. Consider perinatology consult. Danita FIELDS BLOOD BANK Final R esult Performing Organization Address City/[facility]/ZIP Co de Phone Number [facility] [address] [place] [address], [place] [phone] * (ABNORMAL) ANTIBODY IDENTIFICATION LAB USE ONLY (01/26/2025 2:45 PM CDT) [facility] ANTIBODY IDENTIFICATION Anti-Arias a, Non-speci fic(A) 01/27/2025 12:07 PM CDT [facility] BLOOD BANK Blood BLOOD SPECIMEN / Unknown [facility] / Unknown 01/26/2025 2:45 PM CDT 01/26/2025 2:45 PM CDT Narrative [facility] BLOOD BANK - 01/27/2025 12:07 [...] Danita FIELDS BLOOD BANK Final R esult [facility] BLOOD BANK [address] [place] [address], * ANTIBODY IDENTIFICATION EACH PANEL (01/26/2025 2:45 PM CDT) Only the most recent of2 resultswithin the time period is included. [facility] 1 [facility]-C[facility] LAB BLOOD BANK PANEL CECILIA ID Panel Antibody ID [facility] B[facility]OD [facility] Danita FIELDS BLOOD BANK Final R esult [facility] [address] [place] [address], * PANEL-ABBREVIATED (01/26/2025 2:45 PM CDT) [facility] 1 [facility] PANEL ABBREVIATED Panel Abbreviated [facility] BLOOD BANK Danita FIELDS BLOOD BANK Final R esult [facility] B[facility]OD BANK [address] [place] [address], [place] [phone] * VAGINAL/RECTAL OB STREP PCR (01/20/2025 8:20 AM IT ARCHITECT) Vaginal/Rectal OB Strep B PCR Negative 01/22/2025 10:00 AM IT ARCHITECT [facility] Other (Vaginal/Rectal) Non-Blood / Unknown 01/20/2025 8:20 AM IT ARCHITECT 01/20/2025 8:47 AM IT ARCHITECT Danita FIELDS MICROBIOLOGY Final R esult Performing Organization Address [facility]/ZIP Co de Phone Number [facility] [address] [place] [address], [place] * ZIO PATCH XT - weekly to monthly symptoms. (01/13/2025) Daniella Barrera MD CARDIAC SERVICES ORD Fi nal Result * TSH WITH REFLEX (12/22/2024 11:08 AM IT ARCHITECT) TSH W/REFLEX TO FT4 0.77 mIU/L [facility] erin [place] Comment: Reference Range > or = 20 Years 0.40-4.50 Ranges First trimester 0.26-2.66 Second trimester 0.55-2.73 Third trimester 0.43-2.91 Blood BLOOD SPECIMEN / Unknown 12/22/2024 11:08 AM IT ARCHITECT 12/22/2024 11:09 AM IT ARCHITECT Daniella Barrera MD CHEMISTRY Final R esult [facility] [employer] [address] [address], [place] [phone] [email or web address] [address] [place] [address] * (ABNORMAL) CBC AND DIFFERENTIAL (12/22/2024 11:08 AM IT ARCHITECT) Pathologist [facility] WHITE BLOOD CELL COUNT 7.2 3.8 - [...] BLOOD SPECIMEN / Unknown 12/22/2024 11:08 AM IT ARCHITECT 12/22/2024 11:09 AM IT ARCHITECT Daniella Barrera MD HEMATOLOGY Final R esult Performing Organization Address City/[facility]/ZIP Co de Phone Number [facility] [address] [place] [address], [facility] [address] [place] [address] * EKG 12 LEAD (12/22/2024 12:00 AM IT ARCHITECT) Daniella Barrera MD EKG ORD Final R esult * ANTI HCV (07/25/2024 2:40 PM CDT) Pathologist [facility] HEPATITIS C ANTIBODY Non-Reacti ve Non-React fredrick 07/25/2024 11:32 PM CDT [facility] Comment:Please note, per www .CDC.gov: [...] SEND OUTS Final Result Performing Organization Address City/[facility]/ZIP Co de Phone Number [facility] [address] [place] [address], * ANTI HIV 1/2 (07/25/2024 2:40 PM CDT) Pathologist [facility] HIV-1/HIV-2 SCREEN Non-Reacti ve Non-Reacti ve 07/25/2024 11:27 PM CDT [facility] Comment:HIV-1 p24 and HIV-1/ HIV-2 Ab Not Detected. Blood BLOOD SPECIMEN / Unknown Venipuncture / Unknown 07/25/2024 2:40 PM CDT 07/25/2024 2:42 PM CDT Blanche Brown MD SEND OUTS Final Result Performing Organization Address [facility] Co de Phone Number [facility] [address] * HPV HIGH RISK (07/25/2024 2:20 PM CDT) TYPE 16 Negative Negative 07/31/2024 8:21 AM CDT [facility] LAB[facility]ATORY TYPE 18 Negative Negative 07/31/2024 8:21 AM CDT [facility] OTHER HIGH RISK TYPES Negative Negative 07/31/2024 8:21 AM CDT [facility] Other (Cervical) Non-Blood / Unknown 07/25/2024 2:20 PM CDT 07/28/2024 1:22 PM CDT Narrative [facility] - 07/31/2024 8:21 AM CDT HPV types 16, 18, 31, 33, 35, 39, 45, 51, 52, 56, 58, 59, 66 and 68 DNA were undetectable or below the pre-set threshold. 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 PCP - General 09/02/19 Shruthi José PA [address] [facility] [address] [place] [address] Physician [employer] 07/30/24 Emperatriz Garcia MD [address] [facility] [address] [place] [address] Obstetrics and Gynecology 08/27/24 Danita Quinones PA [address] [facility] [address] [place] [id number] Physician [employer] 01/20/25
[2025-02-26 02:46] LABS: Slide Review Reflex No
[2025-02-26 02:57] LABS: Albumin* 4.2 g/dL (3.3-5.0); Chloride* 108 mmol/L (96-114); Potassium* 4.2 mmol/L (3.6-5.1); Sodium* 137 mmol/L (135-149)
[2025-02-26 02:59] LABS: Blood Urea Nitrogen* 16 mg/dL (5-24); Creatinine* 0.7 mg/dL (0.5-1.5); Est. Creatinine Clearance* 99.98; Estimated Glomerular Filt Rate 115 ml/min
[2025-02-26 03:00] VITALS: BP 149/99; PULSE 66; RESP 16; O2SAT 99
[2025-02-26 03:00] LABS: Alanine Aminotransferase* 21 U/L (4-35); Alkaline Phosphatase* 127 U/L (40-150); Anion Gap 9 mEq/L (7-15); Aspartate Amino Transferase* 22 U/L (12-35); Bilirubin Direct* 0.3 mg/dL (0.0-0.5); Bilirubin Total* 0.5 mg/dL (0.1-1.5); Calcium* 9.4 mg/dL (8.4-10.6); Carbon Dioxide* 20 mmol/L (20-32); Glucose* 96 mg/dL (60-115); Total Protein* 6.9 g/dL (6.0-8.3)
[2025-02-26 03:01] LABS: Appearance Urine Clear (Clear); Bilirubin Urine Negative (Negative); Blood Urine 2+ (Negative); Color Urine Yellow (Yellow); Glucose Urine Negative (Negative); Ketones Urine Negative (Negative); Leukocyte Esterase Urine Negative (Negative); Nitrite Urine Negative (Negative); Protein Urine Negative (Negative); Specific Gravity Urine 1.015 (1.000-1.030); Urobilinogen Urine 0.2 (0.2-1.0); pH Urine 5.5 (5.0-8.5)
[2025-02-26 03:15] VITALS: BP 138/96; PULSE 64; RESP 16; TEMP 36.6; O2SAT 98
--- NOTE | 2025-02-26 03:23 | ED.GENADULT ---
HPI - General Adult General Date Seen: 02/26/25 Chief complaint: Hypertension Stated complaint: high BP, had preeclampsia last week Time Seen by Provider: 02/26/25 02:00 Source: patient Mode of arrival: ambulatory Limitations: no limitations History of Present Illness HPI narrative: Patient is a 34-year-old who had a vaginal delivery on 02/08/2025 at [facility]. She did not have blood pressure issues prior to her delivery nor with her other pregnancies. Since delivery she has struggled with preeclampsia. She is currently taking labetalol 400 mg t.i.d. and amlodipine 5 mg b.i.d.. She has been instructed to check her blood pressure before she takes either of those medications to ensure that her pressure is not too low. Tonight she was feeling fine but when she checked her pressure she found it to be in the 140s over 90s. She contacted her OBGYN office and got the answering service. They initially were on divert at [facility] and she was instructed to go to any hospital that has an mechanical systems designer. That is how she wound up in [place]. She continues to feel well. She has had no nausea or vomiting. No abdominal pain. No headaches. She did take an extra dose of labetalol 200 mg but when her pressure remained above 140/90 she came to the hospital. She is breast-feeding effectively. She has had no fevers or chills. She is due to see her OB provider later on today. They are planning to do labs at that visit. Related Data Home Medications ?Medication ?Instructions ?Recorded ?Confirmed docosahexaenoic acid 200 mg mg PO 08/13/24 09/16/24 capsule ( DHA) labetalol 200 mg tablet 400 mg PO Q8H 02/26/25 02/26/25 nifedipine 30 mg tablet,extended 30 mg PO BID 02/26/25 02/26/25 release 24 hr Previous Rx's ?Medication ?Instructions ?Recorded triamcinolone acetonide 0.1 % See Rx Instructions .Route 09/16/24 lotion .COMPLEX #60 mL Allergies Allergy/AdvReac Type Severity Reaction Status Date / Time No Known Drug Allergies Allergy Verified 02/26/25 02:14 Review of Systems Narrative: Review of systems is outlined above otherwise noted to be negative. 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, antepartum ?O36.1920 - Maternal care for other isoimmunization, second trimester, not applicable or unspecified (ICD-10) Elderly multigravida in second trimester ?O09.522 - Supervision of elderly multigravida, second trimester (ICD-10) 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, antepartum ?O36.1930 - Maternal care for other isoimmunization, third trimester, not applicable or unspecified (ICD-10) Hypertension affecting in third trimester ?O16.3 - Unspecified maternal hypertension, third trimester (ICD-10) AMA (advanced maternal age) multigravida 35+ ?O09.529 - Supervision of elderly multigravida, unspecified trimester (ICD-10) Pre-eclampsia, ?O14.95 - Unspecified pre-eclampsia, complicating the puerperium (ICD-10) Vitamin D deficiency ?E55.9 - Vitamin D deficiency, unspecified (ICD-10) Polycystic ovary syndrome ?E28.2 - Polycystic ovarian syndrome (ICD-10) Left otitis externa ?H60.92 - Unspecified otitis externa, left ear (ICD-10) Acute left otitis media ?H66.92 - Otitis media, unspecified, left ear (ICD-10) Surgical History (Updated 02/26/25 @ 02:41 by Waqas Up RN) No significant past surgical history Social History Smoking Status: Never smoker Second hand tobacco smoke exposure: No How often do you have a drink containing alcohol: never AUDIT-C Alcohol total score: 0 Non-prescribed substance use: denies use Exam Narrative: Exam Narrative: Vitals noted. HEENT: Conjunctiva clear. Posterior pharynx is clear without erythema or exudate. Neck is supple without adenopathy, thyromegaly. Lungs: Clear to auscultation in all mcnamara. No wheezes, rales, rhonchi. Heart: Regular rate and rhythm without murmur. Abdomen: Soft and nontender. No guarding, rigidity, rebound. Bowel sounds are normal. No palpable masses. Extremities: No cyanosis or edema. Good distal pulses. Skin: No abnormalities noted of the exposed skin. Neurologic: Awake, alert, fully oriented. Neurologic exam is nonfocal. Reflexes are normal. No clonus. Const: Vital Signs, click to edit/add: Vital Signs - 24 hr 02/26/25 02:10 02/26/25 02:30 02/26/25 03:00 Temperature Pulse Rate [Pulse Oximeter] 64 69 66 Respiratory Rate 16 16 16 Blood Pressure [Le ft Upper Arm] 146/96 H 144/98 H 149/99 H Pulse Oximetry 98 97 99 Oxygen Delivery Me thod Room Air Room Air Room Air 02/26/25 03:15 Temperature 97.9 F Pulse Rate [Pulse Oximeter] 64 Respiratory Rate 16 Blood Pressure [Le ft Upper Arm] 138/96 H Pulse Oximetry 98 Oxygen Delivery Me thod Room Air Course Course ED Course: Patient seen and examined. During her stay her systolic blood pressure ranged from 138-146. Her diastolic pressure remained between 90 and 96. She feels well with no symptoms consistent with preeclampsia. Labs are drawn. Reevaluation(s) Reevaluation #1: CBC shows a hemoglobin of 12.4, platelet count of [id number]. Basic metabolic panel is normal. LFTs are completely normal. Urinalysis shows no protein. We had a good discussion about preeclampsia, labs, meds, etc.. She has a follow-up appointment with an OB provider in 10 hours. She is comfortable being discharged home with her . Full will have her take an extra dose of labetalol at 8 a.m.. Vital Signs Vital signs: Initial Vital Signs Respiratory Effort Normal, Spontaneous, Non-Labored 02/26/25 02:07 Respiratory Depth Normal 02/26/25 02:07 Respiratory Pattern Normal 02/26/25 02:07 Vital Signs Pulse Rate 64 02/26/25 02:10 Respiratory Rate 16 02/26/25 02:10 Blood Pressure 146/96 H 02/26/25 02:10 Pulse Oximetry 98 02/26/25 02:10 Oxygen Delivery Method Room Air 02/26/25 02:10 Temperature 97.9 F 02/26/25 03:15 Pulse Rate 64 02/26/25 03:15 Respiratory Rate 16 02/26/25 03:15 Blood Pressure 138/96 H 02/26/25 03:15 Pulse Oximetry 98 02/26/25 03:15 Oxygen Delivery Method Room Air 02/26/25 03:15 Medical Decision Making Lab Data Labs: Lab Results 02/26/25 02/26/25 Range/Units 02:35 02:55 WBC 4.99 (4.50-11.00) K/uL RBC 4.62 (4.00-5.20) m/uL Hgb 12.4 (12.0-16.0) gm/dL Hct 39.3 (33.0-51.0) % MCV 85 (80-100) fL MCH 27 (26-34) pg MCHC 32 (32-36) gm/dL RDW Coeff of Estiven 14.1 (11.5-15.5) % Plt Count 203 (140-440) K/uL Neut % (Auto) 50.3 (42.0-72.0) % Lymph % (Auto) 35.9 (20-44) % Edgar % (Auto) 7.0 (0.0-11.0) % Eos % (Auto) 6.0 (0.0-7.0) % Baso % (Auto) 0.8 (0.0-3.0) % Neut # (Auto) 2.51 (1.7-7.0) K/uL Lymph # (Auto) 1.79 (0.90-2.90) K/uL Edgar # (Auto) 0.30 (0.00-0.90) K/UL Eos # (Auto) 0.30 (0.00-0.50) K/uL Baso # (Auto) 0.04 (0.00-0.30) K/uL Abs Immat Gran (auto) 0.00 (0.00-0.30) K/uL Imm/Tot Granulo (auto) 0.0 % Sodium 137 (135-149) mmol/L Potassium 4.2 (3.6-5.1) mmol/L Chloride 108 (96-114) mmol/L Carbon Dioxide 20 (20-32) mmol/L Anion Gap 9 (7-15) mEq/L BUN 16 (5-24) mg/dL Creatinine 0.7 (0.5-1.5) mg/dL Estimated Creat Clear 99.98 Estimated GFR 115 ml/min Glucose 96 (60-115) mg/dL Calcium 9.4 (8.4-10.6) mg/dL Total Bilirubin 0.5 (0.1-1.5) mg/dL Direct Bilirubin 0.3 (0.0-0.5) mg/dL AST 22 (12-35) U/L ALT 21 (4-35) U/L Alkaline Phosphatase 127 (40-150) U/L Total Protein 6.9 (6.0-8.3) g/dL Albumin 4.2 (3.3-5.0) g/dL Urine Color Yellow (Yellow) Urine Appearance Clear (Clear) Urine pH 5.5 (5.0-8.5) Ur Specific [place] 1.015 (1.000-1.030) Urine Protein Negative (Negative) Urine Glucose (UA) Negative (Negative) Urine Ketones Negative (Negative) Urine Blood 2+ A (Negative) Urine Nitrite Negative (Negative) Urine Bilirubin Negative (Negative) Urine Urobilinogen 0.2 (0.2-1.0) Ur Leukocyte Esterase Negative (Negative) Urine RBC 2-5 A (0-2) Urine WBC 0-2 (0-5) Ur Squamous Epith Cells Few (None-Few) Urine Bacteria None (None) Discharge Plan Discharge Clinical Impression: Pre-eclampsia in period Patient Disposition: Home, Self-Care Condition: Stable Additional Instructions: Take Labetalol 600 mg this morning. Keep follow up appt later today. Return to ED for [place], abdominal pain, etc. If BP rising despite meds call your OB again. Prescriptions: No Action triamcinolone acetonide 0.1 % lotion See Rx Instructions .ROUTE .COMPLEX Qty: 60 0RF Rx Instructions: 1-2 drops to ear daily for 7 days; DHA 200 mg capsule PO nifedipine 30 mg tablet extended release 24hr 30 mg PO BID labetalol 200 mg tablet 400 mg PO Q8H Follow Up/Referrals: Provider,Not a Local [Primary Care Provider] - Stand Alone Forms: Fotofeedback Info Instructions
[2025-02-26 04:53] LABS: Squamous Epithelial Cell Urine Few (None-Few); WBC Urine 0-2 (0-5)
== END 2025-02-26 03:26 | disposition home or self-care (01) ==
PROVIDERS: Emergency Provider Family Medicine
DX: O14.95 Unspecified pre-eclampsia, complicating the puerperium (principal)
CPT/HCPCS: 36415; 80048; 80076; 81001; 81003; 85025; 99282; 99283